=== PATIENT | female | born 1965 | race Hispanic/Latino ===

== ENCOUNTER 2016-11-29 18:28 | Inpatient (IN) | payer MEDICARE ==
[2016-11-29 19:16] LABS: Mean Corpuscular HGB Conc 29 % (30-34); Mean Corpuscular Volume 73 fl (79-97); Platelet Count 336 K/mm3 (140-440); Red Blood Count 2.74 M/mm3 (3.65-5.03); White Blood Count 11.8 K/mm3 (4.5-11.0)
[2016-11-29 19:23] LABS: Hematocrit 19.9 % (30.3-42.9); Hemoglobin 5.8 gm/dl (10.1-14.3); Mean Corpuscular Hemoglobin 21 pg (28-32); Red Cell Distribution Width 20.9 % (13.2-15.2)
[2016-11-29 19:26] LABS: INR 1.27 (0.87-1.13)
[2016-11-29 19:27] LABS: Partial Thromboplastin Time 26.4 Sec. (24.2-36.6)
[2016-11-29 19:37] LABS: BUN/Creatinine Ratio 17.69; Calcium 8.5 mg/dL (8.4-10.2); Potassium 4.1 mmol/L (3.6-5.0)
[2016-11-29] MEDS ORDERED: NACL 0.9% 500 ML 500 ML IV ONE (21:53)
--- NOTE | 2016-11-29 21:56 | Emergency Department Report ---
HPI - General Chief Complaint: Vaginal Bleeding Time Seen by Provider: 11/29/16 21:29 - HPI HPI: Patient is here with a history of anemia. Her anemia is due to cervical polyps. She was due to have surgery on Friday and went for a preop yesterday and was found either hemoglobin was 6. She was told to come to ED/hospital for possible transfusion. She complained of feeling tired and weak. ED Past Medical Hx - Past Medical History Hx Hypertension: Yes Hx Arthritis: Yes Additional medical history: Kidney Transplant 2005, Anemia, Right BKA, Blind in both eyes - Surgical History Additional Surgical History: BKA right leg, kidney transplant - Social History Smoking Status: Never Smoker Substance Use Type: None - Medications Home Medications: Home Medications Medication Instructions Recorded Confirmed Last Taken Type Antiox #11/Om3/Dha/Epa/Lut/Neelima 1 cap PO QDAY 11/12/16 11/29/16 11/29/16 History [50+ Adult Eye Health Softgel] Aspirin [Aspirin BABY CHEW TAB] 81 mg PO QDAY 11/12/16 11/29/16 11/29/16 History AtorvaSTATin [Lipitor] 10 mg PO QDAY 11/12/16 11/29/16 11/29/16 History Metoprolol Xl [Metoprolol 100 mg PO QDAY 11/12/16 11/29/16 11/29/16 History SUCCINATE ER TAB] Mycophenolate [Cellcept] 250 mg PO BID 11/12/16 11/29/16 11/29/16 History Pantoprazole [Protonix TAB] 40 mg PO QDAY 11/12/16 11/29/16 11/29/16 History Paroxetine HCl [PARoxetine] 40 mg PO QDAY 11/12/16 11/29/16 11/29/16 History Prednisone [predniSONE (Yamilex) ER 5 mg PO QDAY 11/12/16 11/29/16 11/29/16 History TAB] Tacrolimus [Prograf] 2 mg PO BID 11/12/16 11/29/16 11/29/16 History medroxyPROGESTERone ACETATE 1 vial IM Q90D 11/12/16 11/29/16 11/29/16 History [Depo-Provera (Contraception)] Oxycodone HCl/Acetaminophen 1 each PO Q6HR PRN #20 tablet 11/13/16 11/29/16/17 Rx [Percocet 7.5/325 mg] ED Review of Systems ROS: Stated complaint: DR OFFICE CALLED [facility] Other details as noted in HPI Comment: All other systems reviewed and negative Constitutional: no symptoms reported, weakness Respiratory: no symptoms reported Physical Exam - Physical Exam Vital Signs: Vital Signs 11/29/16 11/29/16 11/29/16 18:35 19:48 19:51 Temperature 98.4 F Pulse Rate 81 83 90 Respiratory 18 25 H 21 Rate Blood Pressure 163/62 191/72 O2 Sat by Pulse 100 100 100 Oximetry Physical Exam: Gen. alert and oriented 3 , appearing pale Head atraumatic normocephalic Eyes PERR LA EOMI Chest regular rate and rhythm normal S1-S2 lungs clear bilaterally Abdomen soft nondistended Back no point tenderness paravertebral tenderness Neuro no focal deficit. Psych normal mood. ED Course Vital Signs 11/29/16 11/29/16 11/29/16 18:35 19:48 19:51 Temperature 98.4 F Pulse Rate 81 83 90 Respiratory 18 25 H 21 Rate Blood Pressure 163/62 191/72 O2 Sat by Pulse 100 100 100 Oximetry ED Medical Decision Making - Lab Data Result diagrams: 11/29/16 18:55 11/29/16 18:55 Critical care attestation.: If time is entered above; I have spent that time in minutes in the direct care of this critically ill patient, excluding procedure time. ED Disposition Clinical Impression: Severe anemia Disposition: DC-09 OP ADMIT IP TO THIS HOSP Is pt being admited?: Yes Does the pt Need Aspirin: No Condition: Stable Referrals: PRIMARY CARE, [Primary Care Provider] - 3-5 Days
[2016-11-29] MEDS ORDERED: ZOFRAN IV PRN (22:20)
[2016-11-29] MEDS ORDERED: BENADRYL IV PRN (22:20)
[2016-11-29] MEDS ORDERED: MILK OF MAGNESIA PO PRN (22:20)
[2016-11-29] MEDS ORDERED: DULCOLAX PR PRN (22:20)
[2016-11-29] MEDS ORDERED: TYLENOL PO PRN (22:20)
--- NOTE | 2016-11-29 22:23 | History and Physical Report ---
History of Present Illness Date of examination: 11/29/16 History of present illness: 51-year-old woman with a history of hypertension, hyperlipidemia, transplanted kidney, legally blind comes to the emergency room because her doctor sent her to the emergency room for low hemoglobin. The patient is scheduled for surgery on Friday. She complaining of generalized weakness, decreased energy, shortness of breath with activity. Patient denies chest pain, palpitation, shortness of breath, cough, abdominal pain, hematochezia, dysuria, frequency, focal weakness, dysarthria, fever chills , polydipsia polyuria, hot or cold intolerance, easy bruisability, or rash or bleeding from mucosal membrane, rhinorrhea, epistaxis, earache, tinnitus, blurry vision, eye discharge, anxiety, depression. Other review of systems negative PAST SURGICAL HISTORY: Right BKA, pancreas and kidney transplant SOCIAL HISTORY: Denies alcohol, tobacco, drugs FAMILY HISTORY: Hypertension Medications and Allergies Allergies Allergy/AdvReac Type Severity Reaction Status Date / Time adhesive tape AdvReac Rash Verified 11/29/16 18:45 hydromorphone HCl AdvReac Anaphylaxis Verified 11/12/16 19:53 [From Dilaudid] piperacillin sodium AdvReac Diarrhea Verified 11/12/16 19:50 [From Zosyn] tazobactam sodium AdvReac Diarrhea Verified 11/12/16 19:50 [From Zosyn] Home Medications Medication Instructions Recorded Confirmed Last Taken Type Antiox #11/Om3/Dha/Epa/Lut/Neelima 1 cap PO QDAY 11/12/16 11/29/16 11/29/16 History [50+ Adult Eye Health Softgel] Aspirin [Aspirin BABY CHEW TAB] 81 mg PO QDAY 11/12/16 11/29/16 11/29/16 History AtorvaSTATin [Lipitor] 10 mg PO QDAY 11/12/16 11/29/16 11/29/16 History Metoprolol Xl [Metoprolol 100 mg PO QDAY 11/12/16 11/29/16 11/29/16 History SUCCINATE ER TAB] Mycophenolate [Cellcept] 250 mg PO BID 11/12/16 11/29/16 11/29/16 History Pantoprazole [Protonix TAB] 40 mg PO QDAY 11/12/16 11/29/16 11/29/16 History Paroxetine HCl [PARoxetine] 40 mg PO QDAY 11/12/16 11/29/16 11/29/16 History Prednisone [predniSONE (Yamilex) ER 5 mg PO QDAY 11/12/16 11/29/16 11/29/16 History TAB] Tacrolimus [Prograf] 2 mg PO BID 11/12/16 11/29/16 11/29/16 History medroxyPROGESTERone ACETATE 1 vial IM Q90D 11/12/16 11/29/16 11/29/16 History [Depo-Provera (Contraception)] Oxycodone HCl/Acetaminophen 1 each PO Q6HR PRN #20 tablet 11/13/16 11/29/16 Rx [Percocet 7.5/325 mg] Exam - Physical Exam Narrative exam: Gen. appearance: Patient lying in bed, no apparent distress HEENT: Normocephalic, atraumatic, pupils equally round and reactive to light, extraocular movement intact, and no sclericterus,. No JVD or thyromegaly or nodule,neck supple, no carotid bruit ,mucous membranes moist, no exudate or erythema Heart: S1, S2, regular rate and rhythm Lungs: Clear to auscultation bilaterally, breathing comfortable Abdomen: Positive bowel sounds, nontender, nondistended, no organomegaly Extremity: Right BKA, No edema, cyanosis, clubbing Skin: No rash, nodules, warm, dry Neuro: Oriented 3, cranial nerves II-12 intact, speech is fluent, motor and sensory intact - Constitutional Vitals: Temp Pulse Resp BP Pulse Ox 98.4 F 90 21 191/72 100 11/29/16 18:35 11/29/16 19:51 11/29/16 19:51 11/29/16 19:51 11/29/16 19:51 Results - Labs CBC & Chem 7: 11/29/16 18:55 11/29/16 18:55 Labs: Abnormal lab results 11/29/16 11/29/16 11/29/16 Range/Units 18:53 18:55 18:55 WBC 11.8 H (4.5-11.0) K/mm3 RBC 2.74 L (3.65-5.03) M/mm3 Hgb 5.8 L* (10.1-14.3) gm/dl Hct 19.9 L* (30.3-42.9) % MCV 73 L (79-97) fl MCH 21 L (28-32) pg MCHC 29 L (30-34) % RDW 20.9 H (13.2-15.2) % PT (12.2-14.9) Sec. INR (0.87-1.13) Chloride 111.0 H (98-107) mmol/L Carbon Dioxide 17 L (22-30) mmol/L BUN 23 H (7-17) mg/dL Creatinine 1.3 H (0.7-1.2) mg/dL Glucose 172 H (65-100) mg/dL Crossmatch See Detail 11/29/16 Range/Units 18:55 WBC (4.5-11.0) K/mm3 RBC (3.65-5.03) M/mm3 Hgb (10.1-14.3) gm/dl Hct (30.3-42.9) % MCV (79-97) fl MCH (28-32) pg MCHC (30-34) % RDW (13.2-15.2) % PT 15.8 H (12.2-14.9) Sec. INR 1.27 H (0.87-1.13) Chloride (98-107) mmol/L Carbon Dioxide (22-30) mmol/L BUN (7-17) mg/dL Creatinine (0.7-1.2) mg/dL Glucose (65-100) mg/dL Crossmatch Assessment and Plan Symptomatic anemia Hypertension Hyperlipidemia Status post kidney and pancreas transplant Admit to medicine Transfuse packed red blood cells, start DVT prophylaxis with SCD Continue outpatient medications
[2016-11-29] MEDS ORDERED: ROXICODONE PO PRN (23:11)
[2016-11-30] MEDS ORDERED: APRESOLINE PO PRN (00:09)
[2016-11-30] MEDS ORDERED: NACL 0.9% 500 ML 500 ML ONE (00:46)
[2016-11-30] MEDS: PERCOCET 5/325 PO PRN ×2 (01:00→07:37)
[2016-11-30] MEDS ORDERED: APRESOLINE IV ONE ×2 (01:24→06:45)
[2016-11-30] MEDS ORDERED: NITRO-BID 2% TP ONE (01:30)
[2016-11-30] MEDS ORDERED: PERCOCET 5/325 PO ONE (06:47)
[2016-11-30 08:35] LABS: Hematocrit 29.3 % (30.3-42.9); Hemoglobin 8.9 gm/dl (10.1-14.3); Mean Corpuscular HGB Conc 31 % (30-34); Mean Corpuscular Volume 80 fl (79-97); Platelet Count 316 K/mm3 (140-440); Red Blood Count 3.69 M/mm3 (3.65-5.03); White Blood Count 11.9 K/mm3 (4.5-11.0)
[2016-11-30 08:39] LABS: Mean Corpuscular Hemoglobin 24 pg (28-32); Red Cell Distribution Width 22.2 % (13.2-15.2)
[2016-11-30 08:56] LABS: BUN/Creatinine Ratio 19.16; Calcium 8.3 mg/dL (8.4-10.2); Chloride 111.9 mmol/L (98-107); Potassium 3.9 mmol/L (3.6-5.0)
[2016-11-30] MEDS ORDERED: DELTASONE PO SCH (10:00)
[2016-11-30] MEDS ORDERED: PROTONIX PO SCH (10:00)
[2016-11-30] MEDS ORDERED: PAXIL PO SCH (10:00)
[2016-11-30] MEDS ORDERED: TOPROL XL PO SCH (10:00)
[2016-11-30] MEDS ORDERED: CELLCEPT PO SCH (10:00)
[2016-11-30] MEDS ORDERED: PROGRAF PO SCH (10:00)
[2016-11-30 11:06] VITALS: BP 148/80
--- NOTE | 2016-11-30 11:15 | Discharge Summary ---
Providers - Providers Date of Admission: 11/29/16 22:20 Date of discharge: 11/30/16 Attending physician: BRAYDEN PEOPLES MD Primary care physician: FAISAL MORTON MD Hospitalization Reason for admission: symptomatic anemia Condition: Stable Hospital course: 51-year-old woman with a history of hypertension, hyperlipidemia, transplanted kidney, legally blind comes to the emergency room because her doctor sent her to the emergency room for low hemoglobin. The patient is scheduled for surgery on Friday. She complaining of generalized weakness, decreased energy, shortness of breath with activity. Patient was admitted for severe symptomatic anemia and she was transfused with 2 units of packed RBC and hemoglobin and hematocrit was stable after that. Patient has cervical polyps and scheduled for surgery by her DIETETIC AIDE. Patient was stable at the time of discharge. His medications were reviewed and updated on the time of discharge. Patient's questions and concerns were addressed at bedside. Disposition: TO HOME OR SELFCARE Time spent for discharge: 31 minutes - Discharge Diagnoses (1) Severe anemia Status: Acute (2) Right leg pain Status: Acute (3) HTN (hypertension) Status: Acute Qualifiers: Hypertension type: H Core Measure Documentation - Palliative Care Palliative Care/ Comfort Measures: Not Applicable - Core Measures Any of the following diagnoses?: none Exam - Physical Exam Narrative exam: Not in cardiopulmonary distress. The patient appeared well nourished and normally developed. Vital signs as documented. Head exam is unremarkable. No scleral icterus . Neck is without jugular venous distension, thyromegaly, or carotid bruits. Lungs are clear to auscultation. Cardiac exam reveals regular rate and Rhythm. Abdominal exam reveals normal bowel sounds, no masses. Extremities Rt BKA. STICKER ON: Alert and oriented 3. No focal weakness. - Constitutional Vitals: Temp Pulse Resp BP Pulse Ox 98.7 F 78 20 148/80 98 11/30/16 11:05 11/30/16 11:05 11/30/16 11:11/30/16 11:11/30/16 07:10 Plan Activity: no restrictions Weight Bearing Status: Full Weight Bearing Diet: low cholesterol, low salt Follow up with: PRIMARY CAREMD [Primary Care Provider] - 3-5 Days Prescriptions: oxyCODONE /ACETAMINOPHEN [Percocet 5/325 mg] 1 tab PO Q6H PRN #12 tablet PRN Reason: Pain Oxycodone HCl/Acetaminophen [Percocet 7.5/325 mg] 1 each PO Q6HR PRN #12 tablet PRN Reason: Pain
[2016-11-30 14:17] LABS: Anisocytosis 1+; Blastocytes % (Manual) 0 %; Hypochromasia 1+
[2016-11-30 14:18] LABS: Diff Status Complete; Microcytosis 1+; Platelet Estimate Consistent w Auto
== END 2016-11-30 13:15 | disposition home or self-care (01) | DRG 760 ==
LOC: ED 18:28 → 3A 22:20
PROVIDERS: ADMIT Internal Medicine; ATTEND Internal Medicine
PROC: 30233N1 Transfusion of Nonautologous Red Blood Cells into Peripheral Vein, Percutaneous Approach (ICD-10-PCS; principal; 2016-11-30)
DX: N84.1 Polyp of cervix uteri (principal); Z94.0 Kidney transplant status; Z94.83 Pancreas transplant status; D64.9 Anemia, unspecified; I10 Essential (primary) hypertension; E78.5 Hyperlipidemia, unspecified; H54.8 Legal blindness, as defined in USA; Z89.511 Acquired absence of right leg below knee; Z82.49 Family history of ischemic heart disease and other diseases of the circulatory system; Z88.8 Allergy status to other drugs, medicaments and biological substances; Z79.82 Long term (current) use of aspirin; M79.604 Pain in right leg
CPT/HCPCS: 36415; 80048; 85007; 85025; 85027; 85610; 85730; 86850; 86900; 86901; 86920; 99285; J0360; J7040; J7507; J7512; J7517; P9016

== ENCOUNTER 2017-04-29 11:48 | Inpatient (IN) | payer MEDICARE ==
--- NOTE | 2017-04-29 13:06 | Emergency Department Report ---
ED Shortness of Breath HPI - General Chief Complaint: Dyspnea/Respdistress Stated Complaint: SOB Time Seen by Provider: 04/29/17 12:49 Source: patient Mode of arrival: Ambulatory Limitations: No Limitations - History of Present Illness Initial Comments: 51-year-old female with a past medical history of hypertension, anemia, legal blindness, right BKA, and kidney and pancreas transplant at [place] presents to the hospital with complaints of volume overload shortness of breath. Patient complains of swelling to her left leg, orthopnea, PND, and dyspnea worse with movement. Patient complains of lower back pain because she has been sleeping in a hospital bed 1 week. She is unable to lay flat any needs to sit straight up. She reports that in March she received IV contrast then required IV fluids causing the symptoms of volume overload. 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 Patient states she had a history of diabetes prior to receiving transplant that has since improved. - Related Data Home Medications Medication Instructions Recorded Confirmed Last Taken AtorvaSTATin [Lipitor] 10 mg PO QDAY 11/12/16 11/29/16 11/29/16 C,E,Zinc,Copper 11/Qddpk2v/Lut 1 cap PO QDAY 11/12/16 11/29/16 11/29/16 [50+ Adult Eye Health Softgel] Metoprolol Xl [Metoprolol 100 mg PO QDAY 11/12/16 11/29/16 11/29/16 SUCCINATE ER TAB] Mycophenolate [Cellcept] 250 mg PO BID 11/12/16 11/29/16 11/29/16 Pantoprazole [Protonix TAB] 40 mg PO QDAY 11/12/16 11/29/16 11/29/16 Paroxetine HCl [PARoxetine] 40 mg PO QDAY 11/12/16 11/29/16 11/29/16 Prednisone [predniSONE (Yamilex) ER 5 mg PO QDAY 11/12/16 11/29/16 11/29/16 TAB] Tacrolimus [Prograf] 2 mg PO BID 11/12/16 11/29/16 11/29/16 medroxyPROGESTERone ACETATE 1 vial IM Q90D 11/12/16 11/29/16 11/29/16 [Depo-Provera (Contraception)] Previous Rx's Medication Instructions Recorded Last Taken Type Oxycodone HCl/Acetaminophen 1 each PO Q6HR PRN #12 tablet 11/30/16 Unknown Rx [Percocet 7.5/325 mg] oxyCODONE /ACETAMINOPHEN [Percocet 1 tab PO Q6H PRN #12 tablet 11/30/16 Unknown Rx 5/325 mg] Allergies Allergy/AdvReac Type Severity Reaction Status Date / Time adhesive tape AdvReac Rash Verified 04/29/17 12:05 hydromorphone HCl AdvReac Anaphylaxis Verified 04/29/17 12:05 [From Dilaudid] piperacillin sodium AdvReac Diarrhea Verified 04/29/17 12:05 [From Zosyn] tazobactam sodium AdvReac Diarrhea Verified 04/29/17 12:05 [From Zosyn] ED Review of Systems ROS: Stated complaint: SOB Other details as noted in HPI Comment: All other systems reviewed and negative Other: Constitutional: No fevers chills Eyes: legally blind ENT: No ear pain or throat pain Neck: Denies pain Respiratory: as per hpi Cardiovascular: Denies chest pain, palpitations, syncope GI: Denies abdominal pain, nausea, vomiting, diarrhea : Denies dysuria Musculoskeletal: as per hpi Skin: Denies rash, lesions, erythema Neurologic: Denies headache, numbness, weakness Psychiatric: Denies suicidal ideation, hallucinations ED Past Medical Hx - Past Medical History Hx Hypertension: Yes Hx Congestive Heart Failure: No Hx Diabetes: No Hx Arthritis: Yes Hx Asthma: No Hx COPD: No Additional medical history: Anemia, Blind in both eyes - Surgical History Additional Surgical History: BKA right leg, Kidney Transplant 2004, - Social History Smoking Status: Never Smoker - Medications Home Medications: Home Medications Medication Instructions Recorded Confirmed Last Taken Type AtorvaSTATin [Lipitor] 10 mg PO QDAY 11/12/16 11/29/16 11/29/16 History C,E,Zinc,Copper 11/Cxfsz9g/Lut 1 cap PO QDAY 11/12/16 11/29/16 11/29/16 History [50+ Adult Eye Health Softgel] Metoprolol Xl [Metoprolol 100 mg PO QDAY 11/12/16 11/29/16 11/29/16 History SUCCINATE ER TAB] Mycophenolate [Cellcept] 250 mg PO BID 11/12/16 11/29/16 11/29/16 History Pantoprazole [Protonix TAB] 40 mg PO QDAY 11/12/16 11/29/16 11/29/16 History Paroxetine HCl [PARoxetine] 40 mg PO QDAY 11/12/16 11/29/16 11/29/16 History Prednisone [predniSONE (Yamilex) ER 5 mg PO QDAY 11/12/16 11/29/16 11/29/16 History TAB] Tacrolimus [Prograf] 2 mg PO BID 11/12/16 11/29/16 11/29/16 History medroxyPROGESTERone ACETATE 1 vial IM Q90D 11/12/16 11/29/16 11/29/16 History [Depo-Provera (Contraception)] Oxycodone HCl/Acetaminophen 1 each PO Q6HR PRN #12 tablet 11/30/16 Unknown Rx [Percocet 7.5/325 mg] oxyCODONE /ACETAMINOPHEN [Percocet 1 tab PO Q6H PRN #12 tablet 11/30/16 Unknown Rx 5/325 mg] ED Physical Exam - General Limitations: No Limitations - Other Other exam information: General: No limitations, patient is alert in no acute distress Head exam: Atraumatic, normocephalic Eyes exam: Normal appearance ENT: Moist mucous membrane, normal oropharynx Neck exam: Normal inspection, full range of motion, no meningismus nontender Respiratory exam: Clear to auscultation bilateral, no wheezes, rales, or crackles Cardiovascular: Normal rate and rhythm, normal heart sounds Abdomen: Soft, nondistended, and nontender, with normal bowel sounds, no rebound, or guarding Extremity: Full range of motion normal inspection no deformity Back: Normal Inspection, full range of motion, right leg edema nontender Neurologic: Alert, oriented x3, cranial nerves intact, no motor or sensory deficit Psychiatric: normal affect, normal mood Skin: Warm, dry, intact ED Course Vital Signs 04/29/17 12:05 Temperature 98.1 F Pulse Rate 81 Respiratory 24 Rate Blood Pressure 97/58 O2 Sat by Pulse 94 Oximetry - Reevaluation(s) Reevaluation #1: 04/29/17 13:44 Lasix initiated and Percocet provided for pain ED Medical Decision Making - Lab Data Result diagrams: 04/29/17 12:56 04/29/17 13:02 Lab Results 04/29/17 04/29/1717 Range/Units 12:56 13:02 13:02 WBC 10.3 (4.5-11.0) K/mm3 RBC 3.30 L (3.65-5.03) M/mm3 Hgb 8.5 L (10.1-14.3) gm/dl Hct 28.1 L (30.3-42.9) % MCV 85 (79-97) fl MCH 26 L (28-32) pg MCHC 30 (30-34) % RDW 22.2 H (13.2-15.2) % Plt Count 279 (140-440) K/mm3 Lymph % (Auto) 4.2 L (13.4-35.0) % [place] % (Auto) 5.1 (0.0-7.3) % Eos % (Auto) 0.5 (0.0-4.3) % Baso % (Auto) 0.4 (0.0-1.8) % Lymph # 0.4 L (1.2-5.4) K/mm3 [place] # 0.5 (0.0-0.8) K/mm3 Eos # 0.1 (0.0-0.4) K/mm3 Baso # 0.0 (0.0-0.1) K/mm3 Seg Neutrophils % 89.8 H (40.0-70.0) % Seg Neutrophils # 9.2 H (1.8-7.7) K/mm3 PT 15.0 H (12.2-14.9) Sec. INR 1.12 (0.87-1.13) APTT 29.1 (24.2-36.6) Sec. Sodium 141 (137-145) mmol/L Potassium 3.5 L (3.6-5.0) mmol/L Chloride 99.2 (98-107) mmol/L Carbon Dioxide 23 (22-30) mmol/L Anion Gap 22 mmol/L BUN 12 (7-17) mg/dL Creatinine 1.3 H (0.7-1.2) mg/dL Estimated GFR 43 ml/min BUN/Creatinine Ratio 9 % Glucose 109 H (65-100) mg/dL Calcium 9.0 (8.4-10.2) mg/dL Total Bilirubin 0.70 (0.1-1.2) mg/dL AST 13 (5-40) units/L ALT 9 (7-56) units/L Alkaline Phosphatase 60 (35-129) units/L Troponin T 0.010 (0.00-0.029) ng/mL NT-Pro-B Natriuret Pep 3655 H (0-900) pg/mL Total Protein 6.3 (6.3-8.2) g/dL Albumin 4.1 (3.9-5) g/dL Albumin/Globulin Ratio 1.9 % Lipase 52 (13-60) units/L - EKG Data -: EKG Interpreted by Me (anteroseptal infarct, low voltage) EKG shows normal: sinus rhythm, axis (-24), QRS complexes, ST-T waves (no stemi) Rate: normal (75) - EKG Data When compared to previous EKG there are: previous EKG unavailable - Radiology Data Radiology results: report reviewed Chest x-ray: Mild pulmonary venous congestion in trace left pleural effusion - Medical Decision Making Patient related to the hospital for vital overload. Lasix initiated. Percocet for pain. Hospitalist informed - Differential Diagnosis CHF, PE, stable angina, OH, bronchitis, pneumonia Critical Care Time: No Critical care attestation.: If time is entered above; I have spent that time in minutes in the direct care of this critically ill patient, excluding procedure time. ED Disposition Clinical Impression: CHF exacerbation, Anemia, Hx of pancreas transplant, Hx of kidney transplant, Hx of right BKA Disposition: OP ADMIT IP TO THIS HOSP Is pt being admited?: Yes Condition: Stable Time of Disposition: 13:52 (Dr ann/hosp)
--- NOTE | 2017-04-29 13:19 | XRay Report ---
AP CHEST: HISTORY: Shortness of breath No comparison. Mild pulmonary venous congestion and trace left pleural effusion are suspected. The lungs are clear otherwise. Heart size is at the upper limits of normal. The bony structures are grossly intact. IMPRESSION: Mild pulmonary venous congestion and trace left pleural effusion.
[2017-04-29 13:31] LABS: Basophils % (Auto) 0.4 % (0.0-1.8); Eosinophils % (Auto) 0.5 % (0.0-4.3); Hematocrit 28.1 % (30.3-42.9); Hemoglobin 8.5 gm/dl (10.1-14.3); Mean Corpuscular HGB Conc 30 % (30-34); Mean Corpuscular Volume 85 fl (79-97); Platelet Count 279 K/mm3 (140-440); White Blood Count 10.3 K/mm3 (4.5-11.0)
[2017-04-29 13:33] LABS: Albumin 4.1 g/dL (3.9-5); Albumin/Globulin Ratio 1.9 %; Bilirubin,Total 0.7 mg/dL (0.1-1.2); Chloride 99.2 mmol/L (98-107); Potassium 3.5 mmol/L (3.6-5.0); Total Protein 6.3 g/dL (6.3-8.2)
[2017-04-29 13:33] LABS: Mean Corpuscular Hemoglobin 26 pg (28-32); Red Cell Distribution Width 22.2 % (13.2-15.2)
[2017-04-29] MEDS ORDERED: LASIX IV ONE (13:37)
[2017-04-29] MEDS ORDERED: PERCOCET 5/325 PO ONE (13:37)
[2017-04-29 13:41] LABS: INR 1.12 (0.87-1.13)
[2017-04-29 13:42] LABS: Partial Thromboplastin Time 29.1 Sec. (24.2-36.6)
--- NOTE | 2017-04-29 17:16 | History and Physical Report ---
History of Present Illness Date of examination: 04/29/17 Date of admission: 04/29/17 13:52 Chief complaint: CC Sob for 1 week History of present illness: - History of Present Illness Initial Comments: 51-year-old female with a past medical history of hypertension, anemia, legal blindness, right BKA, and kidney and pancreas transplant at [place] presents to the hospital with complaints of shortness of breath.She was recently admitted to [facility] for CHF exacerbation for one week and discharged about 2 days ago. Patient complains of swelling to her left leg, orthopnea, PND, and dyspnea worse with movement. Patient complains of lower back. She is unable to lay flat any needs to sit straight up. She reports that in March she received IV contrast then required IV fluids causing the symptoms of volume overload. 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 Love recommended that she come to the hospital for evaluation. Patient states she had a history of diabetes prior to receiving transplant that has since improved. Past Medical History Hx Hypertension: Yes Hx Congestive Heart Failure: No Hx Diabetes: No Hx Arthritis: Yes Hx Asthma: No Hx COPD: No Additional medical history: Anemia, Blind in both eyes Surgical History Additional Surgical History: BKA right leg, Kidney Transplant 2004, Social History Smoking Status: Never Smokera Fam Hx Htn - Medications Home Medications: Home Medications Medication Instructions Recorded Confirmed Last Taken Type AtorvaSTATin [Lipitor] 10 mg PO QDAY 11/12/16 11/29/16 11/29/16 History C,E,Zinc,Copper 11/Yeezb6r/Lut 1 cap PO QDAY 11/12/16 11/29/16 11/29/16 History [50+ Adult Eye Health Softgel] Metoprolol Xl [Metoprolol 100 mg PO QDAY 11/12/16 11/29/16 11/29/16 History SUCCINATE ER TAB] Mycophenolate [Cellcept] 250 mg PO BID 11/12/16 11/29/16 11/29/16 History Pantoprazole [Protonix TAB] 40 mg PO QDAY 11/12/16 11/29/16 11/29/16 History Paroxetine HCl [PARoxetine] 40 mg PO QDAY 11/12/16 11/29/16 11/29/16 History Prednisone [predniSONE (Yamilex) ER 5 mg PO QDAY 11/12/16 11/29/16 11/29/16 History TAB] Tacrolimus [Prograf] 2 mg PO BID 11/12/16 11/29/16 11/29/16 History medroxyPROGESTERone ACETATE 1 vial IM Q90D 11/12/16 11/29/16 11/29/16 History [Depo-Provera (Contraception)] Oxycodone HCl/Acetaminophen 1 each PO Q6HR PRN #12 tablet 11/30/16 Unknown Rx [Percocet 7.5/325 mg] oxyCODONE /ACETAMINOPHEN [Percocet 1 tab PO Q6H PRN #12 tablet 11/30/16 Unknown Rx 5/325 mg] Review of Systems Stated complaint: SOB Other details as noted in HPI Comment: All other systems reviewed and negative Other: Constitutional: No fevers chills Eyes: legally blind ENT: No ear pain or throat pain Neck: Denies pain Respiratory: as per hpi Cardiovascular: Denies chest pain, palpitations, syncope GI: Denies abdominal pain, nausea, vomiting, diarrhea : Denies dysuria Musculoskeletal: as per hpi Skin: Denies rash, lesions, erythema Neurologic: Denies headache, numbness, weakness Psychiatric: Denies suicidal ideation, hallucinations Medications and Allergies Allergies Allergy/AdvReac Type Severity Reaction Status Date / Time adhesive tape AdvReac Rash Verified 04/29/17 12:05 hydromorphone HCl AdvReac Anaphylaxis Verified 04/29/17 12:05 [From Dilaudid] piperacillin sodium AdvReac Diarrhea Verified 04/29/17 12:05 [From Zosyn] tazobactam sodium AdvReac Diarrhea Verified 04/29/17 12:05 [From Zosyn] Home Medications Medication Instructions Recorded Confirmed Last Taken Type AtorvaSTATin [Lipitor] 10 mg PO QDAY 11/12/16 04/29/17 11/29/16 History Metoprolol Xl [Metoprolol 100 mg PO QDAY 11/12/16 04/29/17 11/29/16 History SUCCINATE ER TAB] Prednisone [predniSONE (Yamilex) ER 5 mg PO QAM 11/12/16 04/29/17 11/29/16 History TAB] Tacrolimus [Prograf] 2 mg PO BID 11/12/16 11/29/16 11/29/16 History Furosemide [Lasix TAB] 40 mg PO QDAY 04/29/17 04/29/17 Unknown History Hydralazine HCl 50 mg PO TID 04/29/17 04/29/17 Unknown History NIFEdipine XL [Procardia Xl] 60 mg PO QDAY 04/29/17 04/29/17 Unknown History Sertraline [Zoloft] 25 mg PO QDAY 04/29/17 04/29/17 Unknown History Sodium Bicarbonate 1,300 mg PO BID 04/29/17 04/29/17 Unknown History Tacrolimus [Prograf] 1 mg PO BID 04/29/17 04/29/17 Unknown History Exam - Constitutional Vitals: Temp Pulse Resp BP Pulse Ox 97.7 F 76 12 137/87 95 04/29/17 16:06 04/29/17 16:06 04/29/17 16:06 04/29/17 16:06 04/29/17 16:06 General appearance: Present: mild distress, well-nourished - EENT Eyes: Present: PERRL ENT: hearing intact, clear oral mucosa - Neck Neck: Present: supple, normal ROM - Respiratory Respiratory effort: normal Respiratory: bilateral: rales - Cardiovascular Heart rate: 90 Rhythm: regular Heart Sounds: Present: S1 & S2. Absent: rub, click - Extremities Extremities: no ischemia, pulses symmetrical, No edema, abnormal (Rt BKA) Peripheral Pulses: within normal limits - Abdominal General gastrointestinal: Present: soft, non-tender, non-distended, normal bowel sounds Female genitourinary: Present: normal - Integumentary Integumentary: Present: clear, warm, dry - Musculoskeletal Musculoskeletal: gait normal, strength equal bilaterally - Psychiatric Psychiatric: appropriate mood/affect, intact judgment & insight - Neurologic Neurologic: CNII-XII intact, moves all extremities - Allied Health Allied health notes reviewed: nursing, case management Results - Labs CBC & Chem 7: 04/29/17 12:56 04/29/17 13:02 Labs: Laboratory Last Values WBC 10.3 K/mm3 (4.5-11.0) 04/29/17 12:56 RBC 3.30 M/mm3 (3.65-5.03) L 04/29/17 12:56 Hgb 8.5 gm/dl (10.1-14.3) L 04/29/17 12:56 Hct 28.1 % (30.3-42.9) L 04/29/17 12:56 MCV 85 fl (79-97) 04/29/17 12:56 MCH 26 pg (28-32) L 04/29/17 12:56 MCHC 30 % (30-34) 04/29/17 12:56 RDW 22.2 % (13.2-15.2) H 04/29/17 12:56 Plt Count 279 K/mm3 (140-440) 04/29/17 12:56 Lymph % (Auto) 4.2 % (13.4-35.0) L 04/29/17 12:56 Cataño % (Auto) 5.1 % (0.0-7.3) 04/29/17 12:56 Eos % (Auto) 0.5 % (0.0-4.3) 04/29/17 12:56 Baso % (Auto) 0.4 % (0.0-1.8) 04/29/17 12:56 Lymph # 0.4 K/mm3 (1.2-5.4) L 04/29/17 12:56 Cataño # 0.5 K/mm3 (0.0-0.8) 04/29/17 12:56 Eos # 0.1 K/mm3 (0.0-0.4) 04/29/17 12:56 Baso # 0.0 K/mm3 (0.0-0.1) 04/29/17 12:56 Seg Neutrophils % 89.8 % (40.0-70.0) H 04/29/17 12:56 Seg Neutrophils # 9.2 K/mm3 (1.8-7.7) H 04/29/17 12:56 PT 15.0 Sec. (12.2-14.9) H 04/29/17 13:02 INR 1.12 (0.87-1.13) 04/29/17 13:02 APTT 29.1 Sec. (24.2-36.6) 04/29/17 13:02 Sodium 141 mmol/L (137-145) 04/29/17 13:02 Potassium 3.5 mmol/L (3.6-5.0) L 04/29/17 13:02 Chloride 99.2 mmol/L (98-107) 04/29/17 13:02 Carbon Dioxide 23 mmol/L (22-30) 04/29/17 13:02 Anion Gap 22 mmol/L 04/29/17 13:02 BUN 12 mg/dL (7-17) 04/29/17 13:02 Creatinine 1.3 mg/dL (0.7-1.2) H 04/29/17 13:02 Estimated GFR 43 ml/min 04/29/17 13:02 BUN/Creatinine Ratio 9 % 04/29/17 13:02 Glucose 109 mg/dL (65-100) H 04/29/17 13:02 Calcium 9.0 mg/dL (8.4-10.2) 04/29/17 13:02 Total Bilirubin 0.70 mg/dL (0.1-1.2) 04/29/17 13:02 AST 13 units/L (5-40) 04/29/17 13:02 ALT 9 units/L (7-56) 04/29/17 13:02 Alkaline Phosphatase 60 units/L (35-129) 04/29/17 13:02 Troponin T 0.010 ng/mL (0.00-0.029) 04/29/17 13:02 NT-Pro-B Natriuret Pep 3655 pg/mL (0-900) H 04/29/17 13:02 Total Protein 6.3 g/dL (6.3-8.2) 04/29/17 13:02 Albumin 4.1 g/dL (3.9-5) 04/29/17 13:02 Albumin/Globulin Ratio 1.9 % 04/29/17 13:02 Lipase 52 units/L (13-60) 04/29/17 13:02 - Imaging and Cardiology EKG: report reviewed Chest x-ray: report reviewed (Pulmonary venous congestion) Assessment and Plan Advance Directives: Yes (ull code) VTE prophylaxis?: Chemical Plan of care discussed with patient/family: Yes - Patient Problems (1) CHF exacerbation Current Visit: Yes Status: Acute Qualifiers: Congestive heart failure type: combined Qualified Code(s): I50.43 - Acute on chronic combined systolic (congestive) and diastolic (congestive) heart failure Plan to address problem: Added Lasix IV 40mg po qam in addition to Po Lasix 20 mg Bid Echo for eval of EF and Valve function Requested law secretary to get [facility] records to avoid duplication. (2) MICKEY (acute kidney injury) Current Visit: Yes Status: Acute Plan to address problem: Cr 1.3 Gentle diuresis. Nephrology consulted for management of MICKEY (3) Hx of kidney transplant Current Visit: Yes Status: Acute Plan to address problem: Cont Tacrolimus (4) Hx of pancreas transplant Current Visit: Yes Status: Acute Plan to address problem: Cont Tacrolimus (5) HTN (hypertension) Current Visit: No Status: Chronic Qualifiers: Hypertension type: essential hypertension Qualified Code(s): I10 - Essential (primary) hypertension Plan to address problem: Cont Nifedipine Metoprolol and Hydralazine (6) Hx of right BKA Current Visit: Yes Status: Chronic Plan to address problem: Supportive care (7) Anemia Current Visit: Yes Status: Chronic Qualifiers: Anemia type: unspecified type Qualified Code(s): D64.9 - Anemia, unspecified Plan to address problem: Check Iron/B12/Folic acid levels (8) T2DM (type 2 diabetes mellitus) Current Visit: Yes Status: Chronic Qualifiers: Diabetes mellitus complication status: without complication Diabetes mellitus superintendent container terminal insulin use: without group home use Qualified Code(s): E11.9 - Type 2 diabetes mellitus without complications Plan to address problem: A1c well controlled. S/p Pancreas transplant. No coverage ordered b/c a1c is 5.1 (9) DVT prophylaxis Current Visit: Yes Status: Acute Plan to address problem: On Heparin
[2017-04-29] MEDS ORDERED: TYLENOL PO PRN (17:22)
[2017-04-29] MEDS ORDERED: REGLAN PO PRN (17:22)
[2017-04-29] MEDS ORDERED: AMBIEN PO PRN (17:22)
[2017-04-29] MEDS ORDERED: DULCOLAX PR PRN (17:22)
[2017-04-29] MEDS ORDERED: ZOFRAN IV PRN (17:22)
[2017-04-29] MEDS ORDERED: MILK OF MAGNESIA PO PRN (17:22)
[2017-04-29] MEDS: PROCARDIA XL PO SCH (18:18)
[2017-04-29] MEDS: MORPHINE IV PRN (18:19)
[2017-04-29] MEDS: ZOLOFT PO SCH (18:19)
[2017-04-29] MEDS: TOPROL XL PO SCH (18:19)
[2017-04-29] MEDS ORDERED: NON-FORMULARY (Hydralazine Hcl [Hydralazine Hcl] 50 MG) PO SCH (20:00)
[2017-04-29] MEDS: PEPCID PO SCH (21:20)
[2017-04-29] MEDS: PROGRAF PO SCH (21:20)
[2017-04-29] MEDS: APRESOLINE PO SCH (21:20)
[2017-04-29] MEDS: SODIUM BICARBONATE PO SCH (21:20)
[2017-04-29] MEDS ORDERED: PROGRAF PO SCH ×2 (22:00)
[2017-04-30] MEDS ORDERED: K-DUR PO ONE (06:41)
[2017-04-30] MEDS ORDERED: MILK OF MAGNESIA PO PRN (06:42)
[2017-04-30] MEDS ORDERED: DULCOLAX PR PRN (06:42)
[2017-04-30] MEDS ORDERED: TYLENOL PO PRN (06:42)
[2017-04-30] MEDS ORDERED: ZOFRAN IV PRN (06:42)
[2017-04-30 06:54] LABS: Basophils % (Auto) 0.6 % (0.0-1.8); Hematocrit 26.4 % (30.3-42.9); Hemoglobin 8.5 gm/dl (10.1-14.3); Mean Corpuscular HGB Conc 32 % (30-34); Mean Corpuscular Hemoglobin 27 pg (28-32); Mean Corpuscular Volume 85 fl (79-97); Platelet Count 246 K/mm3 (140-440); White Blood Count 7.1 K/mm3 (4.5-11.0)
[2017-04-30 06:55] LABS: Red Cell Distribution Width 22.5 % (13.2-15.2)
[2017-04-30 07:09] LABS: Albumin 3.8 g/dL (3.9-5); Bilirubin,Total 0.6 mg/dL (0.1-1.2); Calcium 8.6 mg/dL (8.4-10.2); Chloride 103.5 mmol/L (98-107); Potassium 3.3 mmol/L (3.6-5.0); Total Protein 5.7 g/dL (6.3-8.2)
[2017-04-30] MEDS: LASIX IV SCH (07:25)
[2017-04-30] MEDS: APRESOLINE PO SCH ×3 (08:00→20:28)
[2017-04-30 09:05] LABS: Iron 21 ug/dL (37-170); Total Iron Binding Capacity 193 mcg/dL (250-450)
--- NOTE | 2017-04-30 09:41 | Consultation ---
History of Present Illness - History of Present Illness Thank you for the consultation patient was evaluated today. Source of information; patient himself current records were also reviewed History of presenting illness; patient is a pleasant 51-year-old female who has known history of kidney pancreas transplant in her baseline creatinine is around 1-1.2 she presented to the hospital complaints of increasing shortness of breath and leg swelling hypertension. Patient was recently admitted at [facility] last month when she was having similar symptoms but had markedly worsened swelling and severely anemic. At that time she will also noted to have radiocontrast renal injury due to uterine embolization that was performed with radiocontrast. Patient was significantly edematous at that time but protein Ratio is essentially unremarkable. Patient was severely anemic in the past which was felt to be due to the fact bleeding and fibroid which has currently stopped She has been taking call Prograf 2 mg a morning 1 mg a evening and CellCept 500 mg twice a day which she's not getting of the current dose Overall her shortness of breath is much better today Past medical history is significant for kidney pancreas transplant Congestive heart failure Hypertension Below-knee amputation Severe anemia Uterine embolization Allergies: multiple including adhesive tape hydromorphone penicillin sodium etc. Social history: denies any history of alcohol or tobacco abuse Family history: noncontributory for renal lipid disorder Review of system is positive for worsening edema again with some shortness of breath were controlled blood pressure Complete review of systems obtained pertinent positive above other's review of systems negative Physical examination General: No acute distress HEENT: Oral mucosa moist no pharyngeal erythema no pallor or icterus no uremic order Neck: Supple no evidence of any thyromegaly trachea midline no JVD Chest: Clear to auscultation no crackles are also wheezes anteriorly Heart: Regular rate and rhythm S1-S2 heard no S3-S4 Abdomen: Soft nontender no renal bruit no CVA tenderness no suprapubic fullness no organomegaly Extremity: 1 plus edema one leg amputated no peripheral cyanosis pulses palpable Neurological: Alert awake follows command grossly nonfocal examination Back: Nontender thoracolumbar spine Musculoskeletal: No joint effusion noted Skin: No petechial rash/noted Assessment and plan Renal transplant recipient baseline creatinine has been between 1-1.3, renal function is currently at baseline Continue with her transplant medication at the same dose which she has been taking at home Shortness of breath in a patient who has history of diastolic heart failure uncontrolled hypertension No evidence of hydronephrosis was noted in her admission at [facility] History of radiocontrast nephropathy post uterine embolization at [place] Uncontrolled hypertension Severe anemia with history of uterine bleed fibroid postembolization Poor compliance with diet and lifestyle/ patient may benefit from psychiatric evaluation as well as social service agency director to see Continue to follow and make recommendation from renal standpoint Received adequate counseling and education regarding multiple renal related issues Nature and issue of renal-related issues were discussed with patient, all questions were answered and simple [place] Patient does have good understanding about renal-related issues. diuresis only as tolerated to keep creatinine 1.5 Counseled and educated to get further education from [employer] and related links, and if any further question to clarify with me We'll continue to follow and make recommendations from renal standpoint If you have any questions please feel free to contact me at [phone] Medications and Allergies Allergies Allergy/AdvReac Type Severity Reaction Status Date / Time adhesive tape AdvReac Rash Verified 04/29/17 12:05 hydromorphone HCl AdvReac Anaphylaxis Verified 04/29/17 12:05 [From Dilaudid] piperacillin sodium AdvReac Diarrhea Verified 04/29/17 12:05 [From Zosyn] tazobactam sodium AdvReac Diarrhea Verified 04/29/17 12:05 [From Zosyn] Home Medications Medication Instructions Recorded Confirmed Last Taken Type AtorvaSTATin [Lipitor] 10 mg PO QDAY 11/12/16 04/29/17 11/29/16 History Metoprolol Xl [Metoprolol 100 mg PO QDAY 11/12/16 04/29/17 11/29/16 History SUCCINATE ER TAB] Prednisone [predniSONE (Yamilex) ER 5 mg PO QAM 11/12/16 04/29/17 11/29/16 History TAB] Tacrolimus [Prograf] 2 mg PO BID 11/12/16 04/30/17 11/29/16 History Furosemide [Lasix TAB] 40 mg PO QDAY 04/29/17 04/29/17 Unknown History Hydralazine HCl 50 mg PO TID 04/29/17 04/29/17 Unknown History NIFEdipine XL [Procardia Xl] 60 mg PO QDAY 04/29/17 04/29/17 Unknown History Sertraline [Zoloft] 25 mg PO QDAY 04/29/17 04/29/17 Unknown History Sodium Bicarbonate 1,300 mg PO BID 04/29/17 04/29/17 Unknown History Tacrolimus [Prograf] 1 mg PO BID 04/29/17 04/29/17 Unknown History Mycophenolate [Cellcept] 500 mg PO BID tablet 05/02/17 Unknown Rx Spironolactone [Aldactone] 25 mg PO QDAY #30 tablet 05/02/17 Unknown Rx Active Meds: Active Medications Acetaminophen (Tylenol) 650 mg PO Q4H PRN PRN Reason: Pain MILD(1-3)/Fever >100.5/MIGUEL Atorvastatin Calcium (Lipitor) 10 mg PO QHS [facility] Last Admin: 04/29/17 21:20 Dose: 10 mg Bisacodyl (Dulcolax) 10 mg MT QDAY PRN PRN Reason: Constipation unrelieved by [facility] Famotidine (Pepcid) 20 mg PO BID [facility] Last Admin: 04/29/17 21:20 Dose: 20 mg Furosemide (Lasix) 40 mg IV QDAY [facility] Stop: 05/02/17 23:59 Last Admin: 04/30/17 07:25 Dose: 40 mg Heparin Sodium (Porcine) (Heparin) 5,000 unit SUB-Q Q12HR [facility] Hydralazine HCl (Apresoline) 50 mg PO TID [facility] Last Admin: 04/29/17 21:20 Dose: 50 mg Magnesium Hydroxide (Milk Of Magnesia) 30 ml PO Q4H PRN PRN Reason: Constipation Metoclopramide HCl (Reglan) 10 mg PO Q6H PRN PRN Reason: Nausea And Vomiting Metoprolol Succinate (Toprol Xl) 100 mg PO QDAY [facility] Last Admin: 04/29/17 18:19 Dose: 100 mg Morphine Sulfate (Morphine) 2 mg IV Q4H PRN PRN Reason: Pain, Moderate (4-6) Last Admin: 04/29/17 18:19 Dose: 2 mg Nifedipine (Procardia Xl) 60 mg PO QDAY [facility] Last Admin: 04/29/17 18:18 Dose: 60 mg Ondansetron HCl (Zofran) 4 mg IV Q8H PRN PRN Reason: N/V unrelieved by Reglan Prednisone (Deltasone) 5 mg PO QDAY [facility] Sertraline HCl (Zoloft) 25 mg PO QDAY [facility] Last Admin: 04/29/17 18:19 Dose: 25 mg Sodium Bicarbonate (Sodium Bicarbonate) 1,300 mg PO BID [facility] Last Admin: 04/29/17 21:20 Dose: 1,300 mg Tacrolimus (Prograf) 3 mg PO Q12HR [facility] Last Admin: 04/29/17 21:20 Dose: 3 mg Zolpidem Tartrate (Ambien) 5 mg PO QHS PRN PRN Reason: Insomnia Exam - Vital Signs Vital signs: Vital Signs Temp Pulse Resp BP Pulse Ox 98.1 F 81 24 97/58 94 04/29/17 12:05 04/29/17 12:05 04/29/17 12:05 04/29/17 12:05 04/29/17 12:05 Results - Lab Results 05/02/17 06:02 05/02/17 06:02 Most recent lab results Calcium 8.6 mg/dL (8.4-10.2) 04/30/17 06:41
[2017-04-30] MEDS ORDERED: NON-FORMULARY (Prednisone [Prednisone (Rayos) Er Tab] 5 MG) PO SCH (10:00)
[2017-04-30] MEDS: TOPROL XL PO SCH (11:34)
[2017-04-30] MEDS: SODIUM BICARBONATE PO SCH ×2 (11:34→21:55)
[2017-04-30] MEDS: DELTASONE PO SCH (11:35)
[2017-04-30] MEDS: PEPCID PO SCH ×2 (11:35→21:55)
[2017-04-30] MEDS: ZOLOFT PO SCH (11:35)
[2017-04-30] MEDS: PROCARDIA XL PO SCH (11:35)
[2017-04-30] MEDS: PROGRAF PO SCH ×2 (11:35→21:55)
[2017-04-30] MEDS: HEPARIN SUB-Q SCH ×2 (11:41→21:55)
--- NOTE | 2017-04-30 11:52 | Consultation ---
History of Present Illness Consult date: 04/30/17 Requesting physician: STEPHANIE BURGOS Consult reason: congestive heart failure History of present illness: The pt is a 51-year-old female with a past medical history significant for hypertension, HLP, anemia, legal blindness, right BKA due to osteomyelitis, renal failure, s/p kidney transplant at [place], DM (now resolved) s/p pancreas transplant at [place], embolization of the uterine artery due to excessive menstrual bleeding on 04/07/17. She is previously unknown to our practice. She presented with c/o progressively worsening SOB for the past 1-2 weeks. She also c/o orthopnea, which has been present for the past 4-5 months. She denies any chest pain, palpitations, n/v, diaphoresis, dizziness or syncope. LHC 04/2003 showed diffuse luminal irregularity in left system, angiographically normal right system, the anterobasal, anterior, inferior, inferobasal and posterolateral barnett are moderately hypokinetic, EF 35%. Echo 09/2007 showed normal LV-RV function, trivial MR. Past History Past Medical History: anemia, diabetes, hypertension, hyperlipidemia, renal failure Past Surgical History: Other (s/p kidney and pancreas transplant; right BKA) Social history: denies: smoking, alcohol abuse, prescription drug abuse Medications and Allergies Allergies Allergy/AdvReac Type Severity Reaction Status Date / Time adhesive tape AdvReac Rash Verified 04/29/17 12:05 hydromorphone HCl AdvReac Anaphylaxis Verified 04/29/17 12:05 [From Dilaudid] piperacillin sodium AdvReac Diarrhea Verified 04/29/17 12:05 [From Zosyn] tazobactam sodium AdvReac Diarrhea Verified 04/29/17 12:05 [From Zosyn] Home Medications Medication Instructions Recorded Confirmed Last Taken Type AtorvaSTATin [Lipitor] 10 mg PO QDAY 11/12/16 04/29/17 11/29/16 History Metoprolol Xl [Metoprolol 100 mg PO QDAY 11/12/16 04/29/17 11/29/16 History SUCCINATE ER TAB] Prednisone [predniSONE (Yamilex) ER 5 mg PO QAM 11/12/16 04/29/17 11/29/16 History TAB] Tacrolimus [Prograf] 2 mg PO BID 11/12/16 04/30/17 11/29/16 History Furosemide [Lasix TAB] 40 mg PO QDAY 04/29/17 04/29/17 Unknown History Hydralazine HCl 50 mg PO TID 04/29/17 04/29/17 Unknown History NIFEdipine XL [Procardia Xl] 60 mg PO QDAY 04/29/17 04/29/17 Unknown History Sertraline [Zoloft] 25 mg PO QDAY 04/29/17 04/29/17 Unknown History Sodium Bicarbonate 1,300 mg PO BID 04/29/17 04/29/17 Unknown History Tacrolimus [Prograf] 1 mg PO BID 04/29/17 04/29/17 Unknown History Active Meds: Active Medications Acetaminophen (Tylenol) 650 mg PO Q4H PRN PRN Reason: Pain MILD(1-3)/Fever >100.5/MIGUEL Atorvastatin Calcium (Lipitor) 10 mg PO QHS [facility] Last Admin: 04/29/17 21:20 Dose: 10 mg Bisacodyl (Dulcolax) 10 mg [place] QDAY PRN PRN Reason: Constipation unrelieved by MOM Famotidine (Pepcid) 20 mg PO BID [facility] Last Admin: 04/30/17 11:35 Dose: 20 mg Furosemide (Lasix) 40 mg IV QDAY [facility] Stop: 05/02/17 23:59 Last Admin: 04/30/17 07:25 Dose: 40 mg Heparin Sodium (Porcine) (Heparin) 5,000 unit SUB-Q Q12HR [facility] Last Admin: 04/30/17 11:41 Dose: 5,000 unit Hydralazine HCl (Apresoline) 50 mg PO TID [facility] Last Admin: 04/30/17 08:00 Dose: Not Given Magnesium Hydroxide (Milk Of Magnesia) 30 ml PO Q4H PRN PRN Reason: Constipation Metoclopramide HCl (Reglan) 10 mg PO Q6H PRN PRN Reason: Nausea And Vomiting Metoprolol Succinate (Toprol Xl) 100 mg PO QDAY [facility] Last Admin: 04/30/17 11:34 Dose: 100 mg Morphine Sulfate (Morphine) 2 mg IV Q4H PRN PRN Reason: Pain, Moderate (4-6) Last Admin: 04/29/17 18:19 Dose: 2 mg Nifedipine (Procardia Xl) 60 mg PO QDAY [facility] Last Admin: 04/30/17 11:35 Dose: 60 mg Ondansetron HCl (Zofran) 4 mg IV Q8H PRN PRN Reason: N/V unrelieved by Reglan Prednisone (Deltasone) 5 mg PO QDAY [facility] Last Admin: 04/30/17 11:35 Dose: 5 mg Sertraline HCl (Zoloft) 25 mg PO QDAY [facility] Last Admin: 04/30/17 11:35 Dose: 25 mg Sodium Bicarbonate (Sodium Bicarbonate) 1,300 mg PO BID [facility] Last Admin: 04/30/17 11:34 Dose: 1,300 mg Tacrolimus (Prograf) 3 mg PO Q12HR [facility] Last Admin: 04/30/17 11:35 Dose: 3 mg Zolpidem Tartrate (Ambien) 5 mg PO QHS PRN PRN Reason: Insomnia Review of Systems Constitutional: no weight loss, no weight gain, no fever, no chills, no sweats Ears, nose, mouth and throat: no ear pain, no nose pain, no sinus pressure, no sinus pain Cardiovascular: orthopnea, shortness of breath, dyspnea on exertion, no chest pain, no palpitations, no rapid/irregular heart beat, no edema, no syncope, no lightheadedness Respiratory: shortness of breath, dyspnea on exertion, no cough, no congestion, no wheezing, no pain on inspiration Gastrointestinal: no abdominal pain, no nausea, no vomiting, no diarrhea, no constipation, no change in bowel habits Genitourinary Female: no dyspareunia, no pelvic pain, no flank pain, no dysuria , no urinary frequency Musculoskeletal: low back pain (chronic), no neck stiffness, no neck pain, no shooting arm pain, no arm numbness/tingling, no shooting leg pain, no leg numbness/tingling Integumentary: no rash, no pruritis, no redness, no sores, no wounds Neurological: no head injury, no paralysis, no weakness, no parathesias, no numbness, no tingling, no seizures, no syncope Psychiatric: no anxiety Endocrine: no cold intolerance, no heat intolerance Hematologic/Lymphatic: no easy bruising, no easy bleeding Allergic/Immunologic: no urticaria, no wheezing Physical Examination Vital Signs Temp Pulse Resp BP Pulse Ox 98.1 F 81 24 97/58 94 04/29/17 12:05 04/29/17 12:05 04/29/17 12:05 04/29/17 12:05 04/29/17 12:05 General appearance: no acute distress HEENT: Positive: PERRL, Normocephaly, Mucus Membranes Moist Neck: Positive: neck supple, trachea midline Cardiac: Positive: Reg Rate and Rhythm, S1/S2 Lungs: Positive: Decreased Breath Sounds Neuro: Positive: Grossly Intact Abdomen: Positive: Soft. Negative: Tender Skin: Positive: Clear. Negative: Rash, Wound Musculoskeletal: No Pain, other (right BKA) Extremities: Absent: edema Results 04/30/17 06:41 04/30/17 06:41 Cardiac Enzymes 04/29/17 04/30/17 Range/Units 13:02 06:41 AST 13 12 (5-40) units/L Coagulation 04/29/17 Range/Units 13:02 PT 15.0 H (12.2-14.9) Sec. INR 1.12 (0.87-1.13) APTT 29.1 (24.2-36.6) Sec. CBC 04/29/17 04/30/17 Range/Units 12:56 06:41 WBC 10.3 7.1 (4.5-11.0) K/mm3 RBC 3.30 L 3.10 L (3.65-5.03) M/mm3 Hgb 8.5 L 8.5 L (10.1-14.3) gm/dl Hct 28.1 L 26.4 L (30.3-42.9) % Plt Count 279 246 (140-440) K/mm3 Lymph # 0.4 L 0.9 L (1.2-5.4) K/mm3 Cassia # 0.5 0.6 (0.0-0.8) K/mm3 Eos # 0.1 0.1 (0.0-0.4) K/mm3 Baso # 0.0 0.0 (0.0-0.1) K/mm3 Comprehensive Metabolic Panel 04/29/17 04/30/17 Range/Units 13:02 06:41 Sodium 141 146 H (137-145) mmol/L Potassium 3.5 L 3.3 L (3.6-5.0) mmol/L Chloride 99.2 103.5 (98-107) mmol/L Carbon Dioxide 23 28 (22-30) mmol/L BUN 12 11 (7-17) mg/dL Creatinine 1.3 H 1.2 (0.7-1.2) mg/dL Glucose 109 H 86 (65-100) mg/dL Calcium 9.0 8.6 (8.4-10.2) mg/dL AST 13 12 (5-40) units/L ALT 9 8 (7-56) units/L Alkaline Phosphatase 60 55 (35-129) units/L Total Protein 6.3 5.7 L (6.3-8.2) g/dL Albumin 4.1 3.8 L (3.9-5) g/dL - Imaging and Cardiology Echo: pending, report reviewed (09/2007 showed normal LV-RV function, trivial MR) Cardiac cath: report reviewed (04/2003 showed diffuse luminal irregularity in left system, angiographically normal right system, the anterobasal, anterior, inferior, inferobasal and posterolateral barnett are moderately hypokinetic, EF 35 %) EKG: report reviewed, image reviewed EKG interpretations - Telemetry EKG Rhythm: Sinus Rhythm - EKG Sinus rhythms and dysrhythmias: sinus rhythm Myocardial infarction: septal [place] (old age or ind, anterior [place] (old age or i Assessment and Plan Assessment: Acute heart failure HTN HLP Anemia Hypokalemia Legal blindness H/o kidney and pancreas transplant H/o right BKA secondary to osteomyelitis S/p embolization of the uterine artery due to excessive menstrual bleeding on Plan: Obtain echo. Cont current medical management. Assessment and plan reviewed with pt at bedside. The patient has been seen in conjunction with Dr. Macias who agrees with the assessment and plan of care.
--- NOTE | 2017-04-30 11:55 | Progress Note ---
Assessment and Plan Assessment and plan: 51-year-old female with a past medical history of hypertension, anemia, legal blindness, right BKA, and kidney and pancreas transplant at [place] presents to the hospital with complaints of shortness of breath.She was recently admitted to [facility] for CHF exacerbation for one week and discharged about 2 days ago. Patient complains of swelling to her left leg, orthopnea, PND, and dyspnea worse with movement. Patient complains of lower back. She is unable to lay flat any needs to sit straight up. She reports that in March she received IV contrast then required IV fluids causing the symptoms of volume overload. Instructor Extension Work: Dr. Love recommended that she come to the hospital for evaluation. Patient states she had a history of diabetes prior to receiving transplant that has since improved. Acute on chronic congestive heart failure possible systolic * Workup ongoing, cardiology consult, strict I's and O's, continue Lasix, Toprol. We'll await cardiology nephrology on if patient will benefit from ACEI/ ARB Acute kidney injury on chronic kidney disease secondary to vasomotor nephropathy * Nephrology following, Now at baseline Kidney Transplant * Continue transplant medications Hypokalemia * Replace and monitor Hx OF Radiocontrast nephropathy post uterine embolization AT [place] * stable at this time Severe anemia multifactorial in etiology now stable history of uterine bleed from fibroid postembolization also CKD. 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 Continue current medications Noncompliance with diet and lifestyle * Extensive counselling Right BKA * Fall precautions Diabetes mellitus * Insulin sliding scale ?S/P Pancrease Transplant, AIC DVT/GI prophy History Interval history: Patient seen and examined, still with some shortenss of breath. Denies chest pain, nausea. Hospitalist Physical - Physical exam Narrative exam: HEENT: Positive: PERRL, Normocephaly, Mucus Membranes Moist Neck: Positive: neck supple, trachea midline Cardiac: Positive: Reg Rate and Rhythm, S1/S2 Lungs: Positive: Decreased Breath Sounds Neuro: Positive: Grossly Intact Abdomen: Positive: Soft. Negative: Tender Skin: Positive: Clear. Negative: Rash, Wound Musculoskeletal: No Pain, other (right BKA) Extremities: Trace edema - Constitutional Vitals: Temp Pulse Resp BP Pulse Ox 98.3 F 74 18 146/62 95 04/30/17 04:42 04/30/17 04:42 04/30/17 04:42 04/30/17 04:42 04/30/17 04:42 General appearance: Present: mild distress, well-nourished Results - Labs CBC & Chem 7: 04/30/17 06:41 05/01/17 03:42 Labs: Laboratory Last Values WBC 7.1 K/mm3 (4.5-11.0) 04/30/17 06:41 RBC 3.10 M/mm3 (3.65-5.03) L 04/30/17 06:41 Hgb 8.5 gm/dl (10.1-14.3) L 04/30/17 06:41 Hct 26.4 % (30.3-42.9) L 04/30/17 06:41 MCV 85 fl (79-97) 04/30/17 06:41 MCH 27 pg (28-32) L 04/30/17 06:41 MCHC 32 % (30-34) 04/30/17 06:41 RDW 22.5 % (13.2-15.2) H 04/30/17 06:41 Plt Count 246 K/mm3 (140-440) 04/30/17 06:41 Lymph % (Auto) 13.0 % (13.4-35.0) L 04/30/17 06:41 Morton % (Auto) 8.6 % (0.0-7.3) H 04/30/17 06:41 Eos % (Auto) 2.0 % (0.0-4.3) 04/30/17 06:41 Baso % (Auto) 0.6 % (0.0-1.8) 04/30/17 06:41 Lymph # 0.9 K/mm3 (1.2-5.4) L 04/30/17 06:41 Morton # 0.6 K/mm3 (0.0-0.8) 04/30/17 06:41 Eos # 0.1 K/mm3 (0.0-0.4) 04/30/17 06:41 Baso # 0.0 K/mm3 (0.0-0.1) 04/30/17 06:41 Seg Neutrophils % 75.8 % (40.0-70.0) H 04/30/17 06:41 Seg Neutrophils # 5.4 K/mm3 (1.8-7.7) 04/30/17 06:41 PT 15.0 Sec. (12.2-14.9) H 04/29/17 13:02 INR 1.12 (0.87-1.13) 04/29/17 13:02 APTT 29.1 Sec. (24.2-36.6) 04/29/17 13:02 Sodium 146 mmol/L (137-145) H 04/30/17 06:41 Potassium 3.3 mmol/L (3.6-5.0) L 04/30/17 06:41 Chloride 103.5 mmol/L (98-107) 04/30/17 06:41 Carbon Dioxide 28 mmol/L (22-30) 04/30/17 06:41 Anion Gap 18 mmol/L 04/30/17 06:41 BUN 11 mg/dL (7-17) 04/30/17 06:41 Creatinine 1.2 mg/dL (0.7-1.2) 04/30/17 06:41 Estimated GFR 48 ml/min 04/30/17 06:41 BUN/Creatinine Ratio 9 % 04/30/17 06:41 Glucose 86 mg/dL (65-100) 04/30/17 06:41 Hemoglobin A1c 5.1 % (4-6) 04/29/17 18:33 Calcium 8.6 mg/dL (8.4-10.2) 04/30/17 06:41 Iron 21 ug/dL (37-170) L 04/30/17 08:25 TIBC 193 mcg/dL (250-450) L 04/30/17 08:25 % Saturation 11.86 % 04/30/17 08:17 Transferrin 192 mg/dl (192-382) 04/30/17 08:17 Total Bilirubin 0.60 mg/dL (0.1-1.2) 04/30/17 06:41 AST 12 units/L (5-40) 04/30/17 06:41 ALT 8 units/L (7-56) 04/30/17 06:41 Alkaline Phosphatase 55 units/L (35-129) 04/30/17 06:41 Troponin T 0.010 ng/mL (0.00-0.029) 04/29/17 13:02 NT-Pro-B Natriuret Pep 3655 pg/mL (0-900) H 04/29/17 13:02 Total Protein 5.7 g/dL (6.3-8.2) L 04/30/17 06:41 Albumin 3.8 g/dL (3.9-5) L 04/30/17 06:41 Albumin/Globulin Ratio 2.0 % 04/30/17 06:41 Lipase 52 units/L (13-60) 04/29/17 13:02 Vitamin B12 1192 pg/mL (211-911) H 04/30/17 08:17 - Imaging and Cardiology Chest x-ray: image reviewed (mild pulmonary congestion)
[2017-04-30] MEDS: MORPHINE IV PRN (14:11)
[2017-05-01 04:37] LABS: Calcium 8.7 mg/dL (8.4-10.2); Chloride 104.8 mmol/L (98-107); Magnesium 1.8 mg/dL (1.7-2.3); Potassium 3.5 mmol/L (3.6-5.0)
--- NOTE | 2017-05-01 09:32 | Progress Note ---
Subjective Interval history: Patient was seen today for follow-up on multiple renal related issues Events of 24 hours vitals labs intake output medications were reviewed Interdisciplinary Notes were also reviewed Past medical history: Reviewed Social history: Reviewed Allergies: Reviewed Medication: Reviewed Labs: Reviewed Physical examination Gen.: No acute distress HEENT: Oral mucosa moist, mild pallor no icterus Neck: Supple no thyromegaly nodular mass or JVD Chest: Clear to auscultation anteriorly Heart: Regular rate and rhythm S1 and S2 heard Abdomen: Soft nontender no renal bruit no CVA tenderness no suprapubic fullness Extremity: Edema approximately 1+ dry skin no purpuric rash Dermatology: Dry skin no rash Neurological: Alert awake oriented Assessment and plan Renal transplant recipient patient's renal function has been stable continue with the immunosuppression as she has been taking at home Patient was taking CellCept at home and this will be restarted without any delay History of uncontrolled hypertension chronic long-standing? Compliance needs follow-up goal blood pressure under 130 systolic Congestive heart failure counseled and educated patient does have hypertension that has been uncontrolled for quite some time she is also been very poorly compliant with her diet and lifestyle partly also complicated by severe anemia that she had recently Status post radiocontrast exposure resulting in radiocontrast nephropathy currently improved this was done for uterine embolization at [place] Monitor renal related labs, diuresis as tolerated to keep creatinine under 1.4- 1.5 Hypokalemia congestive heart failure hypertension would consider adding Aldactone and monitor blood pressure follow-up Follow cardiology recommendations Had a detailed discussion with patient about multiple renal related issues, explained and simple Setswana. Patient does exhibit good understanding off multiple renal related issues We'll continue to follow and make recommendation from renal standpoint Objective - Vital Signs Vital signs: Vital Signs - 12hr 04/30/17 04/30/17 21:59 23:43 Temperature 98.8 F Pulse Rate 77 Respiratory 20 Rate Respiratory 20 Rate [Thoracic back] Blood Pressure 159/65 O2 Sat by Pulse 96 Oximetry - Lab 05/02/17 06:02 05/02/17 06:02 Most recent lab results Calcium 8.7 mg/dL (8.4-10.2) 05/01/17 03:42 Magnesium 1.80 mg/dL (1.7-2.3) 05/01/17 03:42
[2017-05-01] MEDS ORDERED: ALDACTONE PO SCH (10:00)
[2017-05-01] MEDS: ZOLOFT PO SCH (10:31)
[2017-05-01] MEDS: TOPROL XL PO SCH (10:34)
[2017-05-01] MEDS: PEPCID PO SCH ×2 (10:35→22:25)
[2017-05-01] MEDS: DELTASONE PO SCH (10:35)
[2017-05-01] MEDS: PROCARDIA XL PO SCH (10:36)
[2017-05-01] MEDS: LASIX IV SCH (10:39)
[2017-05-01] MEDS: HEPARIN SUB-Q SCH ×2 (10:45→22:25)
[2017-05-01] MEDS: PROGRAF PO SCH (10:55)
[2017-05-01] MEDS: SODIUM BICARBONATE PO SCH ×2 (11:04→22:25)
[2017-05-01] MEDS: CELLCEPT PO SCH ×2 (11:50→22:25)
[2017-05-01] MEDS: APRESOLINE PO SCH ×3 (11:56→20:34)
--- NOTE | 2017-05-01 12:12 | Query- Renal Failure ---
Dear ____Kary Date:___05/01/17 [employer]er D[employer] Feeder/CDS:___[place] Phone#:___[phone] Exercise your independent professional judgment when responding to query. Questions asked do not imply a particular answer is desired or expected. We greatly appreciate your clarification on this issue. Clinical Documentation States: 51 year old female was admitted on 04/29/17 The progress note (Dr. billy 04/30/17) states " 51-year-old female with a past medical history of hypertension, anemia, legal blindness, right BKA, and kidney and pancreas transplant at [place] presents to the hospital with complaints of shortness of breath. Acute kidney injury on chronic kidney disease Nephrology following, Now at baseline " Clinical Findings Show: 04/29/17 04/30/17 05/01/17 Creatinine: 1.3 1.2 1.3 BUN/Creatinine Ratio: 9 9 8 Please clarify if you mean: Acute Renal Failure with or due to: [ ] Tubular Necrosis [ ] Medullary Necrosis [ x] Vasomotor Nephropathy [ ] Shock Kidney [ ] Tubular Nephrosis [ ] Renal Tubular Stasis [ ] Cortical Necrosis [ ] Acute Renal Failure (unspecified) [ ] Lower Tubular Nephrosis [ ] Other: [ ] Not Applicable Present on Admission: [x ] Yes (Y) [ ] Clinically undeterminable (W) [ ] No (N) Please also document response in your Progress Notes and/or Discharge Summary and indicate if the condition was present on admission. MELVINAD
--- NOTE | 2017-05-01 14:10 | Progress Note ---
Assessment and Plan Assessment: Acute diastolic heart failure HTN HLP Anemia Hypokalemia Legal blindness H/o kidney and pancreas transplant H/o right BKA secondary to osteomyelitis S/p embolization of the uterine artery due to excessive menstrual bleeding on Plan: Echo reviewed - EF 55-60%, pseudonormalization, LA mildly dilated, RV hyperdynamic. Cont current medical management. Assessment and plan reviewed with pt at bedside. The patient has been seen in conjunction with Dr. Macias who agrees with the assessment and plan of care. Subjective Date of service: 05/01/17 Principal diagnosis: DHF Interval history: Pt resting comfortably, SOB slightly improved. Objective Last Vital Signs Temp 98.8 F 04/30/17 23:43 Pulse 73 05/01/17 10:35 Resp 20 04/30/17 23:43 BP 159/67 05/01/17 11:56 Pulse Ox 96 04/30/17 23:43 - Physical Examination HEENT: Positive: PERRL, Normocephaly, Mucus Membranes Moist Neck: Positive: neck supple, trachea midline Cardiac: Positive: Reg Rate and Rhythm, S1/S2 Lungs: Positive: Decreased Breath Sounds Neuro: Positive: Grossly Intact Abdomen: Positive: Soft. Negative: Tender Skin: Positive: Clear. Negative: Rash, Wound Musculoskeletal: No Pain, other (right BKA) Extremities: Absent: edema - Labs and Meds Comprehensive Metabolic Panel 05/01/17 Range/Units 03:42 Sodium 144 (137-145) mmol/L Potassium 3.5 L (3.6-5.0) mmol/L Chloride 104.8 (98-107) mmol/L Carbon Dioxide 25 (22-30) mmol/L BUN 11 (7-17) mg/dL Creatinine 1.3 H (0.7-1.2) mg/dL Glucose 93 (65-100) mg/dL Calcium 8.7 (8.4-10.2) mg/dL - Imaging and Cardiology EKG: report reviewed, image reviewed Echo: pending, report reviewed (09/2007 showed normal LV-RV function, trivial MR) Cardiac cath: report reviewed (04/2003 showed diffuse luminal irregularity in left system, angiographically normal right system, the anterobasal, anterior, inferior, inferobasal and posterolateral barnett are moderately hypokinetic, EF 35 %) - EKG Sinus rhythms and dysrhythmias: sinus rhythm Myocardial infarction: septal PA (old age or ind, anterior PA (old age or i
[2017-05-01] MEDS ORDERED: PROGRAF PO SCH (18:00)
--- NOTE | 2017-05-01 18:05 | Progress Note ---
Assessment and Plan Assessment and plan: 51-year-old female with a past medical history of hypertension, anemia, legal blindness, right BKA, and kidney and pancreas transplant at [place] presents to the hospital with complaints of shortness of breath.She was recently admitted to [facility] for CHF exacerbation for one week and discharged about 2 days ago. Patient complains of swelling to her left leg, orthopnea, PND, and dyspnea worse with movement. Patient complains of lower back. She is unable to lay flat any needs to sit straight up. She reports that in March she received IV contrast then required IV fluids causing the symptoms of volume overload. 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 Love recommended that she come to the hospital for evaluation. Patient states she had a history of diabetes prior to receiving transplant that has since improved. Acute on chronic congestive heart failure possible systolic * Workup ongoing, cardiology consult, strict I's and O's, continue Lasix, Toprol. We'll await cardiology nephrology on if patient will benefit from ACEI/ ARB Acute kidney injury on chronic kidney disease secondary to vasomotor nephropathy * Nephrology following, Now at baseline Pancrease/Kidney Transplant * Continue transplant medications Legal Blindness * Continue to monitor. Hypokalemia * Replace and monitor Hx OF Radiocontrast nephropathy post uterine embolization AT [place] * stable at this time Severe anemia multifactorial in etiology now stable history of uterine bleed from fibroid postembolization also CKD. * Stable, ANEMIA WORK UP for Iron Indices Uncontrolled hypertension * Low salt diet, med compliance counselling provided. 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 History Interval history: Patient seen and examined, still with some shortenss of breath. Denies chest pain, nausea. Sitting up at bedside Hospitalist Physical - Physical exam Narrative exam: HEENT: Positive: PERRL, Normocephaly, Mucus Membranes Moist Neck: Positive: neck supple, trachea midline Cardiac: Positive: Reg Rate and Rhythm, S1/S2 Lungs: Positive: Decreased Breath Sounds Neuro: Positive: Grossly Intact Abdomen: Positive: Soft. Negative: Tender Skin: Positive: Clear. Negative: Rash, Wound Musculoskeletal: No Pain, other (right BKA PROSTHESIS) Extremities: Trace edema - Constitutional Vitals: Temp Pulse Resp BP Pulse Ox 98.8 F 73 20 159/67 96 04/30/17 23:43 05/01/17 10:35 05/01/17 10:00 05/01/17 11:56 04/30/17 23:43 General appearance: Present: mild distress, well-nourished Results - Labs CBC & Chem 7: 04/30/17 06:41 05/01/17 03:42 Labs: Laboratory Last Values WBC 7.1 K/mm3 (4.5-11.0) 04/30/17 06:41 RBC 3.10 M/mm3 (3.65-5.03) L 04/30/17 06:41 Hgb 8.5 gm/dl (10.1-14.3) L 04/30/17 06:41 Hct 26.4 % (30.3-42.9) L 04/30/17 06:41 MCV 85 fl (79-97) 04/30/17 06:41 MCH 27 pg (28-32) L 04/30/17 06:41 MCHC 32 % (30-34) 04/30/17 06:41 RDW 22.5 % (13.2-15.2) H 04/30/17 06:41 Plt Count 246 K/mm3 (140-440) 04/30/17 06:41 Lymph % (Auto) 13.0 % (13.4-35.0) L 04/30/17 06:41 Ashley % (Auto) 8.6 % (0.0-7.3) H 04/30/17 06:41 Eos % (Auto) 2.0 % (0.0-4.3) 04/30/17 06:41 Baso % (Auto) 0.6 % (0.0-1.8) 04/30/17 06:41 Lymph # 0.9 K/mm3 (1.2-5.4) L 04/30/17 06:41 Ashley # 0.6 K/mm3 (0.0-0.8) 04/30/17 06:41 Eos # 0.1 K/mm3 (0.0-0.4) 04/30/17 06:41 Baso # 0.0 K/mm3 (0.0-0.1) 04/30/17 06:41 Seg Neutrophils % 75.8 % (40.0-70.0) H 04/30/17 06:41 Seg Neutrophils # 5.4 K/mm3 (1.8-7.7) 04/30/17 06:41 PT 15.0 Sec. (12.2-14.9) H 04/29/17 13:02 INR 1.12 (0.87-1.13) 04/29/17 13:02 APTT 29.1 Sec. (24.2-36.6) 04/29/17 13:02 Sodium 144 mmol/L (137-145) 05/01/17 03:42 Potassium 3.5 mmol/L (3.6-5.0) L 05/01/17 03:42 Chloride 104.8 mmol/L (98-107) 05/01/17 03:42 Carbon Dioxide 25 mmol/L (22-30) 05/01/17 03:42 Anion Gap 18 mmol/L 05/01/17 03:42 BUN 11 mg/dL (7-17) 05/01/17 03:42 Creatinine 1.3 mg/dL (0.7-1.2) H 05/01/17 03:42 Estimated GFR 43 ml/min 05/01/17 03:42 BUN/Creatinine Ratio 8 % 05/01/17 03:42 Glucose 93 mg/dL (65-100) 05/01/17 03:42 POC Glucose 104 (70-105) 05/01/17 11:47 Hemoglobin A1c 5.1 % (4-6) 04/29/17 18:33 Calcium 8.7 mg/dL (8.4-10.2) 05/01/17 03:42 Magnesium 1.80 mg/dL (1.7-2.3) 05/01/17 03:42 Iron 21 ug/dL (37-170) L 04/30/17 08:25 TIBC 193 mcg/dL (250-450) L 04/30/17 08:25 % Saturation 11.86 % 04/30/17 08:17 Transferrin 192 mg/dl (192-382) 04/30/17 08:17 Total Bilirubin 0.60 mg/dL (0.1-1.2) 04/30/17 06:41 AST 12 units/L (5-40) 04/30/17 06:41 ALT 8 units/L (7-56) 04/30/17 06:41 Alkaline Phosphatase 55 units/L (35-129) 04/30/17 06:41 Troponin T 0.010 ng/mL (0.00-0.029) 04/29/17 13:02 NT-Pro-B Natriuret Pep 3655 pg/mL (0-900) H 04/29/17 13:02 Total Protein 5.7 g/dL (6.3-8.2) L 04/30/17 06:41 Albumin 3.8 g/dL (3.9-5) L 04/30/17 06:41 Albumin/Globulin Ratio 2.0 % 04/30/17 06:41 Lipase 52 units/L (13-60) 04/29/17 13:02 Vitamin B12 1192 pg/mL (211-911) H 04/30/17 08:17
[2017-05-01] MEDS: MORPHINE IV PRN ×2 (19:04→23:20)
[2017-05-02] MEDS: PROGRAF PO SCH ×2 (00:03→09:49)
[2017-05-02 06:19] LABS: Hematocrit 27.5 % (30.3-42.9); Hemoglobin 8.6 gm/dl (10.1-14.3); Mean Corpuscular HGB Conc 31 % (30-34); Mean Corpuscular Hemoglobin 26 pg (28-32); Mean Corpuscular Volume 85 fl (79-97); Platelet Count 260 K/mm3 (140-440); Red Blood Count 3.24 M/mm3 (3.65-5.03); White Blood Count 8.5 K/mm3 (4.5-11.0)
[2017-05-02 06:20] LABS: Red Cell Distribution Width 21.6 % (13.2-15.2)
[2017-05-02 06:46] LABS: Chloride 101.9 mmol/L (98-107); Potassium 3.7 mmol/L (3.6-5.0)
[2017-05-02] MEDS: APRESOLINE PO SCH (09:44)
[2017-05-02] MEDS: SODIUM BICARBONATE PO SCH (09:44)
[2017-05-02] MEDS: CELLCEPT PO SCH (09:47)
[2017-05-02] MEDS: PEPCID PO SCH (09:47)
[2017-05-02] MEDS: PROCARDIA XL PO SCH (09:48)
[2017-05-02] MEDS: ZOLOFT PO SCH (09:48)
[2017-05-02] MEDS: DELTASONE PO SCH (09:48)
[2017-05-02] MEDS: TOPROL XL PO SCH (09:49)
--- NOTE | 2017-05-02 09:51 | Discharge Summary ---
Providers - Providers Date of Admission: 04/29/17 13:52 Attending physician: CLINT BECKER MD 04/29/17 17:22 Consult to Physician [CONS] Routine Consulting Provider: FLOR LOVE Reason For Exam: Renal transplant Place consult to:: RENAL Notified:: A SERVICE Was contact made?: Yes Time called:: 18:00 04/30/17 06:57 Consult to Physician [CONS] Routine Consulting Provider: COCO CORTEZ Reason For Exam: CHF exac Place consult to:: Dr. Cortez Notified:: Marlene RN Phone number called:: Was contact made?: Yes If yes, spoke with:: Roseanne-answering service Time called:: 08:07 Hospitalization Reason for admission: congestive heart failure Condition: Stable Hospital course: 51-year-old female with a past medical history of hypertension, anemia, legal blindness, right BKA, and kidney and pancreas transplant at [place] presents to the hospital with complaints of shortness of breath.She was recently admitted to [facility] for CHF exacerbation for one week and discharged about 2 days ago. Patient complains of swelling to her left leg, orthopnea, PND, and dyspnea worse with movement. Patient complains of lower back. She is unable to lay flat any needs to sit straight up. She reports that in March she received IV contrast then required IV fluids causing the symptoms of volume overload. 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 Love recommended that she come to the hospital for evaluation. Patient states she had a history of diabetes prior to receiving transplant that has since improved. The hospital the patient was given IV Lasix with appropriate diuresis noted. Considering baseline renal dysfunction ACEI/ARB was not initiated by spironolactone was added. The patient improved and is back to her baseline. Her echocardiogram Showed an ejection fraction of 55-60%. Patient was also evaluated by recordak operator as noted above. No new changes were made to her transplant medications she is to continue her current medications. Discharge diagnosis Acute on chronic congestive heart failure possible systolic Acute kidney injury on chronic kidney disease secondary to vasomotor nephropathy Pancrease/Kidney Transplant Legal Blindness Hypokalemia Hx OF Radiocontrast nephropathy post uterine embolization AT [place] Severe anemia multifactorial in etiology now stable history of uterine bleed from fibroid postembolization also CKD. Uncontrolled hypertension Noncompliance with diet and lifestyle Right BKA Diabetes mellitus Disposition: DC-30 STILL A PATIENT Time spent for discharge: 35 mins Core Measure Documentation - Palliative Care Palliative Care/ Comfort Measures: Not Applicable - Core Measures Any of the following diagnoses?: heart failure - VTE Discharge Requirements Deep Vein Thrombosis/Pulmonary Embolism Present on Admission: No - Heart Failure Discharge Requirements TANIA/ARB for LVSD if EF <40%: No Reason for no TANIA/ARB: Renal impairment Beta ranjan at discharge: Yes Exam - Physical Exam Narrative exam: VITAL SIGNS: Reviewed. GENERAL: The patient appeared well nourished and normally developed. Vital signs as documented. HEAD: No signs of head trauma. EYES: Pupils are equal. Legally blind EARS: Hearing grossly intact. MOUTH: Oropharynx is normal. NECK: No adenopathy, no JVD. CHEST: Chest with clear breath sounds bilaterally. No wheezes, rales, or rhonchi. CARDIAC: Regular rate and rhythm. S1 and S2, without murmurs, gallops, or rubs. VASCULAR: No Edema. Peripheral pulses normal and equal in all extremities. ABDOMEN: Soft, without detectable tenderness. No sign of distention. No rebound or guarding, and no masses palpated. Bowel Sounds normal. MUSCULOSKELETAL: Good range of motion of all major joints except the right BKA with prosthesis. Extremities without clubbing, cyanosis or edema. NEUROLOGIC EXAM: Alert and oriented x 3. No focal sensory or strength deficits. Speech normal. Follows commands. PSYCHIATRIC: Mood normal. SKIN: No rash or lesions. - Constitutional Vitals: Temp Pulse Resp BP Pulse Ox 98.1 F 83 20 144/55 95 05/02/17 07:44 05/02/17 07:44 05/02/17 07:44 05/02/17 07:44 05/02/17 07:44 Plan Activity: advance as tolerated, fall precautions Diet: low salt, diabetic Special Instructions: record daily BP diary, record blood sugar diary Additional Instructions: follow with PCP in 3-7 days Follow up with: FLOR LOVE MD [Staff Physician] - 7 Days MALCOLM HEWITT MD [Staff Physician] - 7 Days Prescriptions: Spironolactone [Aldactone] 25 mg PO QDAY #30 tablet
[2017-05-02] MEDS: LASIX IV SCH (09:54)
--- NOTE | 2017-05-02 10:40 | Progress Note ---
Subjective Principal diagnosis: DHF Interval history: Patient was seen today for follow-up on multiple renal related issues Events of 24 hours vitals labs intake output medications were reviewed she is feeling much better shortness of breath is resolving well edema slowly improving Patient admits being noncompliant and is willing to change her diet Interdisciplinary Notes were also reviewed Past medical history: Reviewed Social history: Reviewed Allergies: Reviewed Medication: Reviewed Labs: Reviewed Physical examination Gen.: No acute distress HEENT: Oral mucosa moist, mild pallor no icterus Neck: Supple no thyromegaly nodular mass or JVD Chest: Clear to auscultation anteriorly Heart: Regular rate and rhythm S1 and S2 heard Abdomen: Soft nontender no renal bruit no CVA tenderness no suprapubic fullness Extremity: Edema approximately 1+ dry skin no purpuric rash Dermatology: Dry skin no rash Neurological: Alert awake oriented Assessment and plan Renal transplant recipient patient's renal function has been stable continue with immunosuppression like she has been taking Axillary hypertension: Currently now well controlled Hypokalemia hypertension currently much better with Aldactone needs basic metabolic profile next week in the office Recent radiocontrast injury from uterine embolization creatinine has currently normalized to her baseline Congestive heart failure counseling and education was done noncompliance noted Anemia due to uterine bleeding fibroid status post embolization she is stable for discharge to follow-up in the office next week will need basic metabolic profile done on the office Friday We'll continue to follow and make recommendation from renal standpoint Objective - Vital Signs Vital signs: Vital Signs - 12hr 05/01/17 05/01/17 05/01/17 23:20 23:28 23:38 Temperature 98.4 F Pulse Rate 75 Respiratory 22 18 Rate Respiratory 22 Rate [Thoracic back] Blood Pressure 153/67 O2 Sat by Pulse 97 Oximetry 05/01/17 05/02/17 05/02/17 23:50 04:57 07:44 Temperature 97.9 F 98.1 F Pulse Rate 80 83 Respiratory 20 18 20 Rate Respiratory Rate [Thoracic back] Blood Pressure 131/51 144/55 O2 Sat by Pulse 92 95 Oximetry 05/02/17 05/02/17 09:44 09:49 Temperature Pulse Rate 93 H 93 H Respiratory Rate Respiratory Rate [Thoracic back] Blood Pressure 144/55 144/55 O2 Sat by Pulse Oximetry - Lab 05/02/17 06:02 05/02/17 06:02 Most recent lab results Calcium 9.0 mg/dL (8.4-10.2) 05/02/17 06:02 Magnesium 1.80 mg/dL (1.7-2.3) 05/01/17 03:42
--- NOTE | 2017-05-02 11:18 | Progress Note ---
Assessment and Plan Assessment: Acute diastolic heart failure - nearing/at euvolemia HTN HLP Anemia Hypokalemia - improved Legal blindness H/o kidney and pancreas transplant H/o right BKA secondary to osteomyelitis S/p embolization of the uterine artery due to excessive menstrual bleeding on Plan: Currently stable cardiac status. Pt may discharge home from cardiology standpoint. Follow up in our [place] office with Dr. Macias on 05/08/2017 @ 1:45PM. Assessment and plan reviewed with pt at bedside. The patient has been seen in conjunction with Dr. Macias who agrees with the assessment and plan of care. Subjective Date of service: 05/02/17 Principal diagnosis: DHF Interval history: Pt resting comfortably, SOB improved. Objective Last Vital Signs Temp 98.1 F 05/02/17 07:44 Pulse 93 H 05/02/17 09:49 Resp 20 05/02/17 07:44 BP 144/55 05/02/17 09:49 Pulse Ox 95 05/02/17 07:44 - Physical Examination General: No Apparent Distress HEENT: Positive: PERRL, Normocephaly, Mucus Membranes Moist Neck: Positive: neck supple, trachea midline Cardiac: Positive: Reg Rate and Rhythm, S1/S2 Lungs: Positive: Decreased Breath Sounds Neuro: Positive: Grossly Intact Abdomen: Positive: Soft. Negative: Tender Skin: Positive: Clear. Negative: Rash, Wound Musculoskeletal: No Pain, other (right BKA) Extremities: Absent: edema - Labs and Meds CBC 05/02/17 Range/Units 06:02 WBC 8.5 (4.5-11.0) K/mm3 RBC 3.24 L (3.65-5.03) M/mm3 Hgb 8.6 L (10.1-14.3) gm/dl Hct 27.5 L (30.3-42.9) % Plt Count 260 (140-440) K/mm3 Comprehensive Metabolic Panel 05/02/17 Range/Units 06:02 Sodium 143 (137-145) mmol/L Potassium 3.7 (3.6-5.0) mmol/L Chloride 101.9 (98-107) mmol/L Carbon Dioxide 27 (22-30) mmol/L BUN 14 (7-17) mg/dL Creatinine 1.4 H (0.7-1.2) mg/dL Glucose 90 (65-100) mg/dL Calcium 9.0 (8.4-10.2) mg/dL - Imaging and Cardiology EKG: report reviewed, image reviewed Echo: pending, report reviewed (09/2007 showed normal LV-RV function, trivial MR) Cardiac cath: report reviewed (04/2003 showed diffuse luminal irregularity in left system, angiographically normal right system, the anterobasal, anterior, inferior, inferobasal and posterolateral barnett are moderately hypokinetic, EF 35 %) - EKG Sinus rhythms and dysrhythmias: sinus rhythm Myocardial infarction: septal IN (old age or ind, anterior IN (old age or i
[2017-05-02 12:05] VITALS: BP 163/65
== END 2017-05-02 16:15 | disposition home or self-care (01) | DRG 682 ==
LOC: ED 11:48 → 4A 13:52
PROVIDERS: ADMIT Internal Medicine; ATTEND Internal Medicine
DX: N17.0 Acute kidney failure with tubular necrosis (principal); I50.23 Acute on chronic systolic (congestive) heart failure; I13.0 Hypertensive heart and chronic kidney disease with heart failure and stage 1 through stage 4 chronic kidney disease, or unspecified chronic kidney disease; Z94.0 Kidney transplant status; Z94.83 Pancreas transplant status; D64.9 Anemia, unspecified; E87.6 Hypokalemia; N18.9 Chronic kidney disease, unspecified; E11.22 Type 2 diabetes mellitus with diabetic chronic kidney disease; H54.8 Legal blindness, as defined in USA; M19.90 Unspecified osteoarthritis, unspecified site; Z89.511 Acquired absence of right leg below knee; Z79.899 Other long term (current) drug therapy; Z88.5 Allergy status to narcotic agent; Z88.8 Allergy status to other drugs, medicaments and biological substances; Z91.11 Patient's noncompliance with dietary regimen; Z71.3 Dietary counseling and surveillance
CPT/HCPCS: 36415; 71010; 80048; 80053; 82607; 82747; 82962; 83036; 83550; 83690; 83735; 83880; 84484; 85025; 85027; 85610; 85730; 93005; 93010; 93306; 96374; A9270-GY; J1644; J1940; J2270; J7507; J7512; J7517

== ENCOUNTER 2017-05-12 13:25 | Inpatient (IN) | payer MEDICARE ==
[2017-05-12] MEDS ORDERED: ZOFRAN ONE (13:29)
[2017-05-12 15:13] LABS: Basophils # (Auto) 0.1 K/mm3 (0.0-0.1); Basophils % (Auto) 0.4 % (0.0-1.8); Eosinophils # (Auto) 0.2 K/mm3 (0.0-0.4); Eosinophils % (Auto) 1.1 % (0.0-4.3); Lymphocytes # (Auto) 0.5 K/mm3 (1.2-5.4); Lymphocytes % (Auto) 3.3 % (13.4-35.0); Mean Corpuscular HGB Conc 31 % (30-34); Mean Corpuscular Volume 83 fl (79-97); Monocytes # (Auto) 1.1 K/mm3 (0.0-0.8); Platelet Count 410 K/mm3 (140-440); Red Cell Distribution Width 19.8 % (13.2-15.2)
[2017-05-12] MEDS ORDERED: REGLAN IV ONE (15:14)
[2017-05-12] MEDS ORDERED: SUBLIMAZE IV ONE ×2 (15:14→18:05)
[2017-05-12 15:20] LABS: Hematocrit 37.3 % (30.3-42.9); Hemoglobin 11.4 gm/dl (10.1-14.3); Mean Corpuscular Hemoglobin 25 pg (28-32)
[2017-05-12 15:31] LABS: Albumin 4.4 g/dL (3.9-5); Calcium 9.8 mg/dL (8.4-10.2)
--- NOTE | 2017-05-12 15:34 | Emergency Department Report ---
HPI - General Chief Complaint: Abdominal Pain Time Seen by Provider: 05/12/17 15:06 - HPI HPI: Room 18 The patient is a 51-year-old female presenting with a chief complaint of abdominal pain nausea vomiting. Family states since 05/04/2017 patient has complained of midepigastric abdominal pain radiating to her back and has had intractable nausea and vomiting. There is been no history of fever or dysuria. The patient gets her pain a score of 9/10 Location: Abdomen Duration: 10 days Quality: Pain Severity: 9/10 Modifying factors: [see above] Context: [see above] Mode of transportation: [not driving] ED Past Medical Hx - Past Medical History Hx Hypertension: Yes Hx Diabetes: Yes Hx Arthritis: Yes Hx Kidney Stones: (PT HAS A HX KIDNEY DISEASE.) Additional medical history: Anemia, Blind in both eyes - Surgical History Past Surgical History?: Yes Hx Appendectomy: Yes Additional Surgical History: BKA right leg, Kidney Transplant 2004, - Family History Family history: no significant - Social History Smoking Status: Never Smoker Substance Use Type: None, Alcohol - Medications Home Medications: Home Medications Medication Instructions Recorded Confirmed Last Taken Type AtorvaSTATin [Lipitor] 10 mg PO QDAY 11/12/16 04/29/17 11/29/16 History Metoprolol Xl [Metoprolol 100 mg PO QDAY 11/12/16 04/29/17 11/29/16 History SUCCINATE ER TAB] Prednisone [predniSONE (Yamilex) ER 5 mg PO QAM 11/12/16 04/29/17 11/29/16 History TAB] Tacrolimus [Prograf] 2 mg PO BID 11/12/16 04/30/17 11/29/16 History Furosemide [Lasix TAB] 40 mg PO QDAY 04/29/17 04/29/17 Unknown History Hydralazine HCl 50 mg PO TID 04/29/17 04/29/17 Unknown History NIFEdipine XL [Procardia Xl] 60 mg PO QDAY 04/29/17 04/29/17 Unknown History Sertraline [Zoloft] 25 mg PO QDAY 04/29/17 04/29/17 Unknown History Sodium Bicarbonate 1,300 mg PO BID 04/29/17 04/29/17 Unknown History Tacrolimus [Prograf] 1 mg PO BID 04/29/17 04/29/17 Unknown History Mycophenolate [Cellcept] 500 mg PO BID tablet 05/02/17 Unknown Rx Spironolactone [Aldactone] 25 mg PO QDAY #30 tablet 05/02/17 Unknown Rx ED Review of Systems ROS: Stated complaint: ABD PAIN Other details as noted in HPI Constitutional: denies: fever Eyes: denies: eye pain ENT: denies: throat pain Cardiovascular: denies: chest pain Gastrointestinal: abdominal pain, nausea, vomiting Genitourinary: denies: dysuria Musculoskeletal: back pain Neurological: denies: headache Physical Exam - Physical Exam Vital Signs: Vital Signs 05/12/17 05/12/17 05/12/17 13:57 14:03 14:08 Temperature 97.7 F 97.7 F Pulse Rate 87 88 87 Respiratory 23 17 23 Rate Blood Pressure 125/59 Blood Pressure 125/59 125/59 [Right] O2 Sat by Pulse 99 100 99 Oximetry 05/12/17 14:15 Temperature Pulse Rate 87 Respiratory 21 Rate Blood Pressure 123/55 Blood Pressure [Right] O2 Sat by Pulse 99 Oximetry Physical Exam: GENERAL: The patient is well-developed well-nourished female lying on stretcher actively vomiting. [] HEENT: Normocephalic. Atraumatic. NECK: Supple. No meningitic signs are noted. There is no adenopathy noted. CHEST/LUNGS: Clear to auscultation. There is no respiratory distress noted. HEART/CARDIOVASCULAR: Regular. There is no tachycardia. There is no gallop rub or murmur. ABDOMEN: Abdomen is soft, with tenderness to palpation in the midepigastric region. There is no tenderness elsewhere in the abdomen. Absent Monzon sign. Patient has normal bowel sounds. There is no abdominal distention. SKIN: There is no rash. There is no edema. There is no diaphoresis. NEURO: The patient is awake, alert, and oriented. The patient is cooperative. The patient has normal speech MUSCULOSKELETAL: There is no evidence of acute injury. ED Course Vital Signs 05/12/17 05/12/17 05/12/17 13:57 14:03 14:08 Temperature 97.7 F 97.7 F Pulse Rate 87 88 87 Respiratory 23 17 23 Rate Blood Pressure 125/59 Blood Pressure 125/59 125/59 [Right] O2 Sat by Pulse 99 100 99 Oximetry 05/12/17 14:15 Temperature Pulse Rate 87 Respiratory 21 Rate Blood Pressure 123/55 Blood Pressure [Right] O2 Sat by Pulse 99 Oximetry ED Medical Decision Making - Lab Data Result diagrams: 05/12/17 14:56 05/12/17 14:56 Laboratory Tests 05/12/17 05/12/17 05/12/17 14:56 14:56 14:56 WBC 16.2 H RBC 4.50 Hgb 11.4 Hct 37.3 MCV 83 MCH 25 L MCHC 31 RDW 19.8 H Plt Count 410 Lymph % (Auto) 3.3 L [place] % (Auto) 7.0 Eos % (Auto) 1.1 Baso % (Auto) 0.4 Lymph # 0.5 L [place] # 1.1 H Eos # 0.2 Baso # 0.1 Seg Neutrophils % 88.2 H Seg Neutrophils # 14.3 H VBG pH Sodium 142 Potassium 3.1 L Chloride 98.0 Carbon Dioxide 20 L Anion Gap 27 BUN 21 H Creatinine 1.6 H Estimated GFR 34 BUN/Creatinine Ratio 13 Glucose 116 H Calcium 9.8 Total Bilirubin 0.50 AST 22 ALT 11 Alkaline Phosphatase 70 Total Creatine Kinase 47 CK-MB (CK-2) 1.4 CK-MB (CK-2) Rel Index 2.9 Troponin T 0.019 Total Protein 7.2 Albumin 4.4 Albumin/Globulin Ratio 1.6 Lipase 99 H Urine Bilirubin Urine RBC (Auto) U Epithel Cells (Auto) 05/12/17 05/12/17 15:33 16:00 WBC RBC Hgb Hct MCV MCH MCHC RDW Plt Count Lymph % (Auto) [place] % (Auto) Eos % (Auto) Baso % (Auto) Lymph # [place] # Eos # Baso # Seg Neutrophils % Seg Neutrophils # VBG pH 7.416 Sodium Potassium Chloride Carbon Dioxide Anion Gap BUN Creatinine Estimated GFR BUN/Creatinine Ratio Glucose Calcium Total Bilirubin AST ALT Alkaline Phosphatase Total Creatine Kinase CK-MB (CK-2) CK-MB (CK-2) Rel Index Troponin T Total Protein Albumin Albumin/Globulin Ratio Lipase Urine Bilirubin Neg Urine RBC (Auto) 9.0 U Epithel Cells (Auto) 8.0 Laboratory Tests 05/12/17 05/12/17 05/12/17 14:56 14:56 14:56 WBC 16.2 H RBC 4.50 Hgb 11.4 Hct 37.3 MCV 83 MCH 25 L MCHC 31 RDW 19.8 H Plt Count 410 Lymph % (Auto) 3.3 L [place] % (Auto) 7.0 Eos % (Auto) 1.1 Baso % (Auto) 0.4 Lymph # 0.5 L [place] # 1.1 H Eos # 0.2 Baso # 0.1 Seg Neutrophils % 88.2 H Seg Neutrophils # 14.3 H VBG pH Sodium 142 Potassium 3.1 L Chloride 98.0 Carbon Dioxide 20 L Anion Gap 27 BUN 21 H Creatinine 1.6 H Estimated GFR 34 BUN/Creatinine Ratio 13 Glucose 116 H Calcium 9.8 Total Bilirubin 0.50 AST 22 ALT 11 Alkaline Phosphatase 70 Total Creatine Kinase 47 CK-MB (CK-2) 1.4 CK-MB (CK-2) Rel Index 2.9 Troponin T 0.019 Total Protein 7.2 Albumin 4.4 Albumin/Globulin Ratio 1.6 Lipase 99 H Urine Color Urine Turbidity Urine pH Ur Specific [place] Urine Protein Urine Glucose (UA) Urine Ketones Urine Blood Urine Nitrite Urine Bilirubin Urine Urobilinogen Ur Leukocyte Esterase Urine WBC (Auto) Urine RBC (Auto) U Epithel Cells (Auto) Urine Bacteria (Auto) Urine WBC Clumps 05/12/17 05/12/17 15:33 16:00 WBC RBC Hgb Hct MCV MCH MCHC RDW Plt Count Lymph % (Auto) [place] % (Auto) Eos % (Auto) Baso % (Auto) Lymph # [place] # Eos # Baso # Seg Neutrophils % Seg Neutrophils # VBG pH 7.416 Sodium Potassium Chloride Carbon Dioxide Anion Gap BUN Creatinine Estimated GFR BUN/Creatinine Ratio Glucose Calcium Total Bilirubin AST ALT Alkaline Phosphatase Total Creatine Kinase CK-MB (CK-2) CK-MB (CK-2) Rel Index Troponin T Total Protein Albumin Albumin/Globulin Ratio Lipase Urine Color Yellow Urine Turbidity Cloudy Urine pH 5.0 Ur Specific [place] 1.013 Urine Protein 100 mg/dl Urine Glucose (UA) Neg Urine Ketones Neg Urine Blood Neg Urine Nitrite Neg Urine Bilirubin Neg Urine Urobilinogen < 2.0 Ur Leukocyte Esterase Mod Urine WBC (Auto) > 182.0 H Urine RBC (Auto) 9.0 U Epithel Cells (Auto) 8.0 Urine Bacteria (Auto) 3+ Urine WBC Clumps 3+ - EKG Data -: EKG Interpreted by [place] EKG shows normal: sinus rhythm Rate: normal - EKG Data When compared to previous EKG there are: previous EKG unavailable Interpretation: nonspecific ST-T wave ha - Radiology Data Radiology results: report reviewed (CT abdomen and pelvis), image reviewed (CT abdomen and pelvis) CT abdomen and pelvis without contrast: Midepigastric pain radiating to her back. Transverse images are obtained similar chest to the ischium with coronal and sagittal 2-D reformatted images. Imaging of the lung bases demonstrates extensive coronary vascular calcification but the visualized lungs are clear. The liver and spleen are unremarkable. The gallbladder contains several small calculi. The pancreas is atrophic. The renal parenchyma is severely thinned bilaterally with severe lipomatous changes of the central kidneys. There is diffuse calcification of the peripheral renal vessels and heavy calcification of the aorta iliac and major branches. The unopacified bowel is generally unremarkable. There is severe mesenteric lipomatosis as well as lipomatosis of the subcutaneous tissues. There is transplanted left pelvic kidney with the largest obstruction. The bones appear generally somewhat demineralized but no focal lesions. Impressions: 1. Atrophic kidneys with left pelvic renal transplant. 2. Atrophic pancreas. 3. Cholelithiasis. 4. Severe atherosclerosis of multiple vessels. Transcribed By: Toney Dictated By: MICHAEL DOLL MD Electronically Authenticated By: MICHAEL DOLL MD Signed Date/Time: 05/12/171621 DD/ 10 TD/TT: 05/12/171621 - Differential Diagnosis pancreatitis, ACS, small bowel obstruction, GERD Critical care attestation.: If time is entered above; I have spent that time in minutes in the direct care of this critically ill patient, excluding procedure time. ED Disposition Clinical Impression: Acute abdominal pain, Nausea & vomiting, Elevated lipase, UTI (urinary tract infection), Leukocytosis Disposition: -09 OP ADMIT IP TO THIS HOSP Is pt being admited?: Yes Does the pt Need Aspirin: No Condition: Fair Instructions: Abdominal Pain (ED) Referrals: KAY WHITE MD [Primary Care Provider] - 3-5 Days Time of Disposition: 16:44 (hospitalists paged (Dr. Riley))
[2017-05-12] MEDS ORDERED: NACL 0.9% 1000 ML 1,000 ML IV ONE (15:35)
[2017-05-12 16:30] LABS: Creatine Kinase MB 1.4 ng/mL (0.0-4.0)
--- NOTE | 2017-05-12 16:39 | Cat Scan Report ---
CT abdomen and pelvis without contrast: Midepigastric pain radiating to her back. Transverse images are obtained similar chest to the ischium with coronal and sagittal 2-D reformatted images. Imaging of the lung bases demonstrates extensive coronary vascular calcification but the visualized lungs are clear. The liver and spleen are unremarkable. The gallbladder contains several small calculi. The pancreas is atrophic. The renal parenchyma is severely thinned bilaterally with severe lipomatous changes of the central kidneys. There is diffuse calcification of the peripheral renal vessels and heavy calcification of the aorta iliac and major branches. The unopacified bowel is generally unremarkable. There is severe mesenteric lipomatosis as well as lipomatosis of the subcutaneous tissues. There is transplanted left pelvic kidney with the largest obstruction. The bones appear generally somewhat demineralized but no focal lesions. Impressions: 1. Atrophic kidneys with left pelvic renal transplant. 2. Atrophic pancreas. 3. Cholelithiasis. 4. Severe atherosclerosis of multiple vessels.
[2017-05-12 16:42] LABS: Bacteria,Urine 3+ /HPF (Negative); Bilirubin,Urine NEG (Negative); Blood,Urine NEG (Negative); Color,Urine Yellow (Yellow); Nitrite,Urine NEG (Negative); Urobilinogen,Urine < 2.0 mg/dL (<2.0)
[2017-05-12 16:43] LABS: WBC,Urine > 182.0 /HPF (0.0-6.0)
--- NOTE | 2017-05-12 18:02 | History and Physical Report ---
History of Present Illness Chief complaint: I feel sick, and my stomach hurts History of present illness: 51 YO Female with OA, DM, HTN, CKD S/P renal transplant currently on graft rejection therapy presents to ED for evaluation. Pt states that she has experienced abdominal pain, nausea and multiple episodes of vomiting over the past week, with worsening symptoms over the past 2 days. Pt states that her abdominal pain is 9/10, epigastric, radiates to her back, worse with moving, and standings, mildly improved with rest. Pt is unable to tolerate oral intake. Pt denies fever, chills, dysuria, hematuria, BRBPR, Trauma, productive cough, or recent ill contacts. Pt seen and evaluated in ED and found to be in distress and to have UTI,SIRS. [facility] service notified and discussed patient care with DR. Henriquez who recommends patient be admitted and treated for UTI with IV antibiotics, and resumption of her graft rejection drugs. Pt does not require transfer to [facility], Transplant Team as per Dr. Henriquez. Nephrology team consulted in ED. If further questions of concerns during hospital course, Transplant service requests a call for consultation. Past History Past Medical History: anemia, arthritis, diabetes, hypertension, renal failure Past Surgical History: appendectomy, Other (Renal transplant, R BKA) Social history: , lives with family. denies: smoking, alcohol abuse, prescription drug abuse Family history: diabetes, hypertension Medications and Allergies Allergies Allergy/AdvReac Type Severity Reaction Status Date / Time adhesive tape AdvReac Rash Verified 04/29/17 12:05 hydromorphone HCl AdvReac Anaphylaxis Verified 04/29/17 12:05 [From Dilaudid] piperacillin sodium AdvReac Diarrhea Verified 04/29/17 12:05 [From Zosyn] tazobactam sodium AdvReac Diarrhea Verified 04/29/17 12:05 [From Zosyn] Home Medications Medication Instructions Recorded Confirmed Last Taken Type AtorvaSTATin [Lipitor] 10 mg PO QDAY 11/12/16 04/29/17 11/29/16 History Metoprolol Xl [Metoprolol 100 mg PO QDAY 11/12/16 04/29/17 11/29/16 History SUCCINATE ER TAB] Prednisone [predniSONE (Yamilex) ER 5 mg PO QAM 11/12/16 04/29/17 11/29/16 History TAB] Tacrolimus [Prograf] 2 mg PO BID 11/12/16 04/30/17 11/29/16 History Furosemide [Lasix TAB] 40 mg PO QDAY 04/29/17 04/29/17 Unknown History Hydralazine HCl 50 mg PO TID 04/29/17 04/29/17 Unknown History NIFEdipine XL [Procardia Xl] 60 mg PO QDAY 04/29/17 04/29/17 Unknown History Sertraline [Zoloft] 25 mg PO QDAY 04/29/17 04/29/17 Unknown History Sodium Bicarbonate 1,300 mg PO BID 04/29/17 04/29/17 Unknown History Tacrolimus [Prograf] 1 mg PO BID 04/29/17 04/29/17 Unknown History Mycophenolate [Cellcept] 500 mg PO BID tablet 05/02/17 Unknown Rx Spironolactone [Aldactone] 25 mg PO QDAY #30 tablet 05/02/17 Unknown Rx Active Meds: Active Medications Sodium Chloride (Nacl 0.9% 1000 Ml) 1,000 mls @ 250 mls/hr IV ONCE ONE Stop: 05/12/17 19:34 Last Admin: 05/12/17 16:30 Dose: 250 mls/hr Review of Systems Constitutional: no weight loss, no weight gain, no fever, no chills Ears, nose, mouth and throat: no ear pain, no ear discharge, no tinnitis, no decreased hearing, no nose pain, no nasal congestion Breasts: no change in shape, no swelling, no mass Cardiovascular: no chest pain, no orthopnea, no palpitations, no rapid/ irregular heart beat, no edema, no syncope Respiratory: no cough, no cough with sputum, no excessive sputum, no hemoptysis , no shortness of breath Gastrointestinal: abdominal pain, nausea, vomiting, no diarrhea, no constipation , no change in bowel habits, no hematemesis, no coffee ground emesis, no BRBPR, no melena, no hematochezia Genitourinary Female: no pelvic pain, no flank pain, no menorrhagia, no dysuria , no urinary frequency, no urgency Rectal: no pain, no incontinence, no bleeding Musculoskeletal: no neck stiffness, no neck pain, no shooting arm pain, no arm numbness/tingling, no low back pain Integumentary: no rash, no pruritis, no redness, no sores, no wounds, no jaundice, no boils Neurological: no head injury, no transient paralysis, no paralysis, no weakness , no parathesias, no numbness, no tingling, no seizures, no syncope Psychiatric: no anxiety, no memory loss, no change in sleep habits, no sleep disturbances, no insomnia, no hypersomnia, no change in appetite Endocrine: no cold intolerance, no heat intolerance, no polyphagia, no excessive thirst, no polydipsia, no polyuria, no nocturia Hematologic/Lymphatic: no easy bruising, no easy bleeding Allergic/Immunologic: no urticaria, no allergic rhinitis, no wheezing Exam - Constitutional Vitals: Temp Pulse Resp BP Pulse Ox 97.7 F 89 20 144/58 98 05/12/17 14:08 05/12/17 17:16 05/12/17 17:16 05/12/17 17:16 05/12/17 17:16 General appearance: Present: mild distress - EENT Eyes: Present: PERRL ENT: hearing intact, clear oral mucosa - Neck Neck: Present: supple, normal ROM - Respiratory Respiratory effort: normal Respiratory: bilateral: CTA - Cardiovascular Heart Sounds: Present: S1 & S2. Absent: rub, click - Extremities Extremities: pulses symmetrical, No edema Peripheral Pulses: within normal limits - Abdominal General gastrointestinal: Present: soft, tender Localized gastrointestinal: tender: epigastric periumbilical, guarding: epigastric periumbilical Female genitourinary: Present: normal - Rectal Rectal Exam: normal exam-external/orifice - Integumentary Integumentary: Present: clear - Musculoskeletal Musculoskeletal: gait normal, strength equal bilaterally - Psychiatric Psychiatric: appropriate mood/affect, intact judgment & insight - Neurologic Neurologic: CNII-XII intact, moves all extremities Results - Labs CBC & Chem 7: 05/12/17 14:56 05/12/17 14:56 Labs: Abnormal lab results 05/12/17 05/12/17 05/12/17 Range/Units 14:56 14:56 16:00 WBC 16.2 H (4.5-11.0) K/mm3 MCH 25 L (28-32) pg RDW 19.8 H (13.2-15.2) % Lymph % (Auto) 3.3 L (13.4-35.0) % Lymph # 0.5 L (1.2-5.4) K/mm3 [place] # 1.1 H (0.0-0.8) K/mm3 Seg Neutrophils % 88.2 H (40.0-70.0) % Seg Neutrophils # 14.3 H (1.8-7.7) K/mm3 Potassium 3.1 L (3.6-5.0) mmol/L Carbon Dioxide 20 L (22-30) mmol/L BUN 21 H (7-17) mg/dL Creatinine 1.6 H (0.7-1.2) mg/dL Glucose 116 H (65-100) mg/dL Lipase 99 H (13-60) units/L Urine WBC (Auto) > 182.0 H (0.0-6.0) /HPF Assessment and Plan - Patient Problems (1) UTI (urinary tract infection) Current Visit: Yes Status: Acute Qualifiers: Encounter type: initial encounter Plan to address problem: IV abx, IVF, supportive care, urine electrolytes, nephrology consulted, Transplant survice , [facility] notified and recommend admission with IV abx treatment for UTI. (2) ARF (acute renal failure) Current Visit: Yes Status: Acute Qualifiers: Acute renal failure type: with acute tubular necrosis Qualified Code(s): N17.0 - Acute kidney failure with tubular necrosis Plan to address problem: IVF resuscitation, urine electrolytes, monitor uop q shift, (3) SIRS (systemic inflammatory response syndrome) Current Visit: Yes Status: Acute Plan to address problem: IV abx, supportive care, (4) Diabetes Current Visit: Yes Status: Acute Plan to address problem: ADA diet, insulin, accu check (5) HTN (hypertension) Current Visit: Yes Status: Acute Qualifiers: Hypertension type: essential hypertension Qualified Code(s): I10 - Essential (primary) hypertension Plan to address problem: monitor bp q shift, IV hydralazine for systolic above 155, continue medical management (6) DVT prophylaxis Current Visit: Yes Status: Acute
[2017-05-12] MEDS ORDERED: PROVENTIL IH PRN (18:22)
[2017-05-12] MEDS ORDERED: TYLENOL PO PRN (18:22)
[2017-05-12] MEDS ORDERED: ZOFRAN IV PRN (18:22)
[2017-05-12] MEDS ORDERED: NACL 0.45% 1000 ML 1,000 ML IV SCH (19:00)
[2017-05-12] MEDS ORDERED: NON-FORMULARY (Hydralazine Hcl [Hydralazine Hcl] 50 MG) PO SCH (20:00)
[2017-05-12] MEDS: APRESOLINE PO SCH (21:10)
[2017-05-12] MEDS: SODIUM BICARBONATE PO SCH (21:10)
[2017-05-12] MEDS ORDERED: PROGRAF PO SCH (22:00)
[2017-05-12] MEDS: MORPHINE IV PRN (23:14)
[2017-05-13] MEDS: CELLCEPT PO SCH ×3 (03:08→21:59)
[2017-05-13] MEDS: PROGRAF PO SCH ×3 (03:08→21:59)
--- NOTE | 2017-05-13 07:31 | Progress Note ---
<MARJAN FRANZ - Last Filed: 05/13/17 13:59> Assessment and Plan Assessment and plan: Patient is a 51 years old female with OA, DM, HTN, CKD S/P renal transplant currently on graft rejection therapy presents to ED abdominal pain, nausea and multiple episodes of vomiting over the past week, with worsening symptoms over the past 2 days. Sepsis due urinary tract infection Blood and urine cultures Continue IV fluid hydration Continue IV Rocephin. Supportive care Urinary tract infection Follow urine culture Continue IV fluid hydration Continue IV Rocephin. Acute renal failure/vasomotor nephropathy Continue IV fluid Nephrology following Transplant [facility] notified and recommend admission with IV abx treatment for UTI. Hypokalemia Replaced Closely monitor electrolytes Diabetes mellitus Accu-Chek before meals and at bedtime Sliding scale insulin/NovoLog ADA carbohydrate consistent diet Hypertensive urgency Continue home antihypertensive medications Closely monitor blood pressure DVT prophylaxis Heparin History Interval history: Patient complains lower abdominal discomfort. She denies urgency, frequency or burning sensation. Labs and nursing notes reviewed. Hospitalist Physical - Constitutional Vitals: Temp Pulse Resp BP Pulse Ox 98.4 F 80 18 166/58 93 05/13/17 04:57 05/13/17 04:57 05/13/17 04:57 05/13/17 04:57 05/13/17 04:57 General appearance: Present: mild distress - EENT Eyes: Present: PERRL ENT: hearing intact - Neck Neck: Present: supple - Respiratory Respiratory effort: normal - Extremities Extremity abnormal: other (RBKA) - Abdominal General gastrointestinal: soft, non-tender - Integumentary Integumentary: Present: clear, warm, dry - Psychiatric Psychiatric: appropriate mood/affect - Neurologic Neurologic: CNII-XII intact - Allied Health Allied health notes reviewed: nursing Results - Labs CBC & Chem 7: 05/12/17 14:56 05/12/17 14:56 Labs: Laboratory Last Values WBC 16.2 K/mm3 (4.5-11.0) H 05/12/17 14:56 RBC 4.50 M/mm3 (3.65-5.03) 05/12/17 14:56 Hgb 11.4 gm/dl (10.1-14.3) 05/12/17 14:56 Hct 37.3 % (30.3-42.9) 05/12/17 14:56 MCV 83 fl (79-97) 05/12/17 14:56 MCH 25 pg (28-32) L 05/12/17 14:56 MCHC 31 % (30-34) 05/12/17 14:56 RDW 19.8 % (13.2-15.2) H 05/12/17 14:56 Plt Count 410 K/mm3 (140-440) 05/12/17 14:56 Lymph % (Auto) 3.3 % (13.4-35.0) L 05/12/17 14:56 [place] % (Auto) 7.0 % (0.0-7.3) 05/12/17 14:56 Eos % (Auto) 1.1 % (0.0-4.3) 05/12/17 14:56 Baso % (Auto) 0.4 % (0.0-1.8) 05/12/17 14:56 Lymph # 0.5 K/mm3 (1.2-5.4) L 05/12/17 14:56 [place] # 1.1 K/mm3 (0.0-0.8) H 05/12/17 14:56 Eos # 0.2 K/mm3 (0.0-0.4) 05/12/17 14:56 Baso # 0.1 K/mm3 (0.0-0.1) 05/12/17 14:56 Seg Neutrophils % 88.2 % (40.0-70.0) H 05/12/17 14:56 Seg Neutrophils # 14.3 K/mm3 (1.8-7.7) H 05/12/17 14:56 VBG pH 7.416 (7.320-7.420) 05/12/17 15:33 Sodium 142 mmol/L (137-145) 05/12/17 14:56 Potassium 3.1 mmol/L (3.6-5.0) L 05/12/17 14:56 Chloride 98.0 mmol/L (98-107) 05/12/17 14:56 Carbon Dioxide 20 mmol/L (22-30) L 05/12/17 14:56 Anion Gap 27 mmol/L 05/12/17 14:56 BUN 21 mg/dL (7-17) H 05/12/17 14:56 Creatinine 1.6 mg/dL (0.7-1.2) H 05/12/17 14:56 Estimated GFR 34 ml/min 05/12/17 14:56 BUN/Creatinine Ratio 13 % 05/12/17 14:56 Glucose 116 mg/dL (65-100) H 05/12/17 14:56 Calcium 9.8 mg/dL (8.4-10.2) 05/12/17 14:56 Total Bilirubin 0.50 mg/dL (0.1-1.2) 05/12/17 14:56 AST 22 units/L (5-40) 05/12/17 14:56 ALT 11 units/L (7-56) 05/12/17 14:56 Alkaline Phosphatase 70 units/L (35-129) 05/12/17 14:56 Total Creatine Kinase 47 units/L (30-135) 05/12/17 14:56 CK-MB (CK-2) 1.4 ng/mL (0.0-4.0) 05/12/17 14:56 CK-MB (CK-2) Rel Index 2.9 (0-4) 05/12/17 14:56 Troponin T 0.019 ng/mL (0.00-0.029) 05/12/17 14:56 Total Protein 7.2 g/dL (6.3-8.2) 05/12/17 14:56 Albumin 4.4 g/dL (3.9-5) 05/12/17 14:56 Albumin/Globulin Ratio 1.6 % 05/12/17 14:56 Lipase 99 units/L (13-60) H 05/12/17 14:56 Urine Color Yellow (Yellow) 05/12/17 16:00 Urine Turbidity Cloudy (Clear) 05/12/17 16:00 Urine pH 5.0 (5.0-7.0) 05/12/17 16:00 Ur Specific [place] 1.013 (1.003-1.030) 05/12/17 16:00 Urine Protein 100 mg/dl mg/dL (Negative) 05/12/17 16:00 Urine Glucose (UA) Neg mg/dL (Negative) 05/12/17 16:00 Urine Ketones Neg mg/dL (Negative) 05/12/17 16:00 Urine Blood Neg (Negative) 05/12/17 16:00 Urine Nitrite Neg (Negative) 05/12/17 16:00 Urine Bilirubin Neg (Negative) 05/12/17 16:00 Urine Urobilinogen < 2.0 mg/dL (<2.0) 05/12/17 16:00 Ur Leukocyte Esterase Mod (Negative) 05/12/17 16:00 Urine WBC (Auto) > 182.0 /HPF (0.0-6.0) H 05/12/17 16:00 Urine RBC (Auto) 9.0 /HPF (0.0-6.0) 05/12/17 16:00 U Epithel Cells (Auto) 8.0 /HPF (0-13.0) 05/12/17 16:00 Urine Bacteria (Auto) 3+ /HPF (Negative) 05/12/17 16:00 Urine WBC Clumps 3+ /HPF 05/12/17 16:00 <GAGE MASON R - Last Filed: 05/13/17 18:34> Assessment and Plan Assessment and plan: I saw and evaluated the patient. I agree with the findings and the plan of care as documented in the Nurse Practitioner's~note. Hospitalist Physical - Constitutional Vitals: Temp Pulse Resp BP Pulse Ox 98.1 F 81 20 146/69 97 05/13/17 15:30 05/13/17 15:30 05/13/17 15:30 05/13/17 15:30 05/13/17 15:30 Results - Labs CBC & Chem 7: 05/13/17 13:38 05/13/17 13:38 Labs: Laboratory Last Values WBC 10.8 K/mm3 (4.5-11.0) 05/13/17 13:38 RBC 4.03 M/mm3 (3.65-5.03) 05/13/17 13:38 Hgb 10.3 gm/dl (10.1-14.3) 05/13/17 13:38 Hct 33.9 % (30.3-42.9) 05/13/17 13:38 MCV 84 fl (79-97) 05/13/17 13:38 MCH 25 pg (28-32) L 05/13/17 13:38 MCHC 30 % (30-34) 05/13/17 13:38 RDW 19.3 % (13.2-15.2) H 05/13/17 13:38 Plt Count 345 K/mm3 (140-440) 05/13/17 13:38 Lymph % (Auto) 6.0 % (13.4-35.0) L 05/13/17 13:38 [place] % (Auto) 10.5 % (0.0-7.3) H 05/13/17 13:38 Eos % (Auto) 1.5 % (0.0-4.3) 05/13/17 13:38 Baso % (Auto) 0.5 % (0.0-1.8) 05/13/17 13:38 Lymph # 0.7 K/mm3 (1.2-5.4) L 05/13/17 13:38 [place] # 1.1 K/mm3 (0.0-0.8) H 05/13/17 13:38 Eos # 0.2 K/mm3 (0.0-0.4) 05/13/17 13:38 Baso # 0.1 K/mm3 (0.0-0.1) 05/13/17 13:38 Seg Neutrophils % 81.5 % (40.0-70.0) H 05/13/17 13:38 Seg Neutrophils # 8.8 K/mm3 (1.8-7.7) H 05/13/17 13:38 VBG pH 7.416 (7.320-7.420) 05/12/17 15:33 Sodium 141 mmol/L (137-145) 05/13/17 13:38 Potassium 3.8 mmol/L (3.6-5.0) D 05/13/17 13:38 Chloride 99.7 mmol/L (98-107) 05/13/17 13:38 Carbon Dioxide 22 mmol/L (22-30) 05/13/17 13:38 Anion Gap 23 mmol/L 05/13/17 13:38 BUN 17 mg/dL (7-17) 05/13/17 13:38 Creatinine 1.4 mg/dL (0.7-1.2) H 05/13/17 13:38 Estimated GFR 40 ml/min 05/13/17 13:38 BUN/Creatinine Ratio 12 % 05/13/17 13:38 Glucose 82 mg/dL (65-100) 05/13/17 13:38 POC Glucose 103 (70-105) 05/13/17 11:42 Lactic Acid 3.80 mmol/L (0.7-2.0) H* 05/13/17 14:06 Calcium 9.2 mg/dL (8.4-10.2) 05/13/17 13:38 Total Bilirubin 0.40 mg/dL (0.1-1.2) 05/13/17 13:38 AST 20 units/L (5-40) 05/13/17 13:38 ALT 10 units/L (7-56) 05/13/17 13:38 Alkaline Phosphatase 64 units/L (35-129) 05/13/17 13:38 Total Creatine Kinase 47 units/L (30-135) 05/12/17 14:56 CK-MB (CK-2) 1.4 ng/mL (0.0-4.0) 05/12/17 14:56 CK-MB (CK-2) Rel Index 2.9 (0-4) 05/12/17 14:56 Troponin T 0.019 ng/mL (0.00-0.029) 05/12/17 14:56 Total Protein 6.6 g/dL (6.3-8.2) 05/13/17 13:38 Albumin 4.1 g/dL (3.9-5) 05/13/17 13:38 Albumin/Globulin Ratio 1.6 % 05/13/17 13:38 Lipase 99 units/L (13-60) H 05/12/17 14:56 Urine Color Yellow (Yellow) 05/12/17 16:00 Urine Turbidity Cloudy (Clear) 05/12/17 16:00 Urine pH 5.0 (5.0-7.0) 05/12/17 16:00 Ur Specific [place] 1.013 (1.003-1.030) 05/12/17 16:00 Urine Protein 100 mg/dl mg/dL (Negative) 05/12/17 16:00 Urine Glucose (UA) Neg mg/dL (Negative) 05/12/17 16:00 Urine Ketones Neg mg/dL (Negative) 05/12/17 16:00 Urine Blood Neg (Negative) 05/12/17 16:00 Urine Nitrite Neg (Negative) 05/12/17 16:00 Urine Bilirubin Neg (Negative) 05/12/17 16:00 Urine Urobilinogen < 2.0 mg/dL (<2.0) 05/12/17 16:00 Ur Leukocyte Esterase Mod (Negative) 05/12/17 16:00 Urine WBC (Auto) > 182.0 /HPF (0.0-6.0) H 05/12/17 16:00 Urine RBC (Auto) 9.0 /HPF (0.0-6.0) 05/12/17 16:00 U Epithel Cells (Auto) 8.0 /HPF (0-13.0) 05/12/17 16:00 Urine Bacteria (Auto) 3+ /HPF (Negative) 05/12/17 16:00 Urine WBC Clumps 3+ /HPF 05/12/17 16:00
[2017-05-13] MEDS: APRESOLINE PO SCH ×3 (08:51→21:59)
[2017-05-13] MEDS ORDERED: K-DUR PO ONE (10:00)
[2017-05-13] MEDS ORDERED: NON-FORMULARY (Prednisone [Prednisone (Rayos) Er Tab] 5 MG) PO SCH (10:00)
[2017-05-13] MEDS ORDERED: NACL 0.45% 1000 ML IV SCH (10:00)
[2017-05-13] MEDS: ZOLOFT PO SCH (10:23)
[2017-05-13] MEDS: LEVAQUIN 750MG/150ML 750 MG/150 ML BAG IV SCH (10:23)
[2017-05-13] MEDS: SODIUM BICARBONATE PO SCH ×2 (10:23→21:59)
[2017-05-13] MEDS: TOPROL XL PO SCH (10:23)
[2017-05-13] MEDS: LASIX PO SCH (10:25)
[2017-05-13] MEDS: PROCARDIA XL PO SCH (10:25)
[2017-05-13] MEDS: DELTASONE PO SCH (10:25)
[2017-05-13] MEDS: ALDACTONE PO SCH (10:26)
[2017-05-13] MEDS: ZOFRAN IV PRN ×3 (10:35→18:37)
[2017-05-13] MEDS: MORPHINE IV PRN ×4 (10:44→22:10)
[2017-05-13 15:00] LABS: Albumin 4.1 g/dL (3.9-5); Calcium 9.2 mg/dL (8.4-10.2)
[2017-05-13] MEDS ORDERED: FLONASE NS SCH (16:00)
[2017-05-13 16:07] LABS: Basophils # (Auto) 0.1 K/mm3 (0.0-0.1); Basophils % (Auto) 0.5 % (0.0-1.8); Eosinophils # (Auto) 0.2 K/mm3 (0.0-0.4); Eosinophils % (Auto) 1.5 % (0.0-4.3); Lymphocytes # (Auto) 0.7 K/mm3 (1.2-5.4); Mean Corpuscular HGB Conc 30 % (30-34); Mean Corpuscular Volume 84 fl (79-97); Monocytes # (Auto) 1.1 K/mm3 (0.0-0.8); Monocytes % (Auto) 10.5 % (0.0-7.3); Platelet Count 345 K/mm3 (140-440); Red Blood Count 4.03 M/mm3 (3.65-5.03); Red Cell Distribution Width 19.3 % (13.2-15.2)
[2017-05-13 16:10] LABS: Hematocrit 33.9 % (30.3-42.9); Hemoglobin 10.3 gm/dl (10.1-14.3); Mean Corpuscular Hemoglobin 25 pg (28-32)
[2017-05-13] MEDS: FLONASE NS SCH (22:00)
[2017-05-14] MEDS ORDERED: PERCOCET 5/325 PO PRN (00:28)
[2017-05-14 05:27] LABS: Basophils # (Auto) 0.1 K/mm3 (0.0-0.1); Basophils % (Auto) 0.6 % (0.0-1.8); Eosinophils # (Auto) 0.3 K/mm3 (0.0-0.4); Eosinophils % (Auto) 2.5 % (0.0-4.3); Hematocrit 30.5 % (30.3-42.9); Hemoglobin 9.7 gm/dl (10.1-14.3); Lymphocytes # (Auto) 1.1 K/mm3 (1.2-5.4); Lymphocytes % (Auto) 10.4 % (13.4-35.0); Mean Corpuscular HGB Conc 32 % (30-34); Mean Corpuscular Hemoglobin 26 pg (28-32); Mean Corpuscular Volume 82 fl (79-97); Monocytes # (Auto) 1.4 K/mm3 (0.0-0.8); Monocytes % (Auto) 13.9 % (0.0-7.3); Platelet Count 299 K/mm3 (140-440); Red Blood Count 3.71 M/mm3 (3.65-5.03); Red Cell Distribution Width 19.3 % (13.2-15.2)
[2017-05-14 05:49] LABS: Calcium 8.6 mg/dL (8.4-10.2)
--- NOTE | 2017-05-14 08:52 | Progress Note ---
<MARJAN FRANZ - Last Filed: 05/14/17 14:46> Assessment and Plan Assessment and plan: Patient is a 51 years old female with OA, DM, HTN, CKD S/P renal transplant currently on graft rejection therapy presents to ED abdominal pain, nausea and multiple episodes of vomiting over the past week, with worsening symptoms over the past 2 days. Sepsis due urinary tract infection urine culture positive for gram-negative jose a Continue IV fluid hydration Continue IV Rocephin. Supportive care Urinary tract infection Secondary to gram-negative jose a Follow urine culture Continue IV fluid hydration Continue IV Rocephin. Acute renal failure/vasomotor nephropathy Serum creatinine continues to trend down, yesterday was 1.6 today 1.4 Continue IV fluid Nephrology following Transplant [facility] notified and recommend admission with IV abx treatment for UTI. Hypokalemia Replaced Closely monitor electrolytes Diabetes mellitus Accu-Chek before meals and at bedtime Sliding scale insulin/NovoLog ADA carbohydrate consistent diet Hypertensive urgency Continue home antihypertensive medications Closely monitor blood pressure DVT prophylaxis Heparin History Interval history: Patient complains lower abdominal discomfort. She denies urgency, frequency or burning sensation. Labs and nursing notes reviewed. Hospitalist Physical - Constitutional Vitals: Temp Pulse Resp BP Pulse Ox 98.0 F 78 20 166/70 99 05/14/17 07:37 05/14/17 07:37 05/14/17 07:37 05/14/17 07:37 05/14/17 07:37 General appearance: Present: mild distress, other (Patient is legally blind.) - EENT Eyes: Present: PERRL ENT: hearing intact - Neck Neck: Present: supple - Respiratory Respiratory effort: normal - Cardiovascular Rhythm: regular Heart Sounds: Present: S1 & S2 - Extremities Extremity abnormal: other (RBKA) - Abdominal General gastrointestinal: soft, non-tender - Integumentary Integumentary: Present: clear, warm, dry - Psychiatric Psychiatric: appropriate mood/affect - Neurologic Neurologic: CNII-XII intact - Allied Health Allied health notes reviewed: nursing Results - Labs CBC & Chem 7: 05/14/17 05:04 05/14/17 05:04 Labs: Laboratory Last Values WBC 10.1 K/mm3 (4.5-11.0) 05/14/17 05:04 RBC 3.71 M/mm3 (3.65-5.03) 05/14/17 05:04 Hgb 9.7 gm/dl (10.1-14.3) L 05/14/17 05:04 Hct 30.5 % (30.3-42.9) 05/14/17 05:04 MCV 82 fl (79-97) 05/14/17 05:04 MCH 26 pg (28-32) L 05/14/17 05:04 MCHC 32 % (30-34) 05/14/17 05:04 RDW 19.3 % (13.2-15.2) H 05/14/17 05:04 Plt Count 299 K/mm3 (140-440) 05/14/17 05:04 Lymph % (Auto) 10.4 % (13.4-35.0) L 05/14/17 05:04 [place] % (Auto) 13.9 % (0.0-7.3) H 05/14/17 05:04 Eos % (Auto) 2.5 % (0.0-4.3) 05/14/17 05:04 Baso % (Auto) 0.6 % (0.0-1.8) 05/14/17 05:04 Lymph # 1.1 K/mm3 (1.2-5.4) L 05/14/17 05:04 [place] # 1.4 K/mm3 (0.0-0.8) H 05/14/17 05:04 Eos # 0.3 K/mm3 (0.0-0.4) 05/14/17 05:04 Baso # 0.1 K/mm3 (0.0-0.1) 05/14/17 05:04 Seg Neutrophils % 72.6 % (40.0-70.0) H 05/14/17 05:04 Seg Neutrophils # 7.3 K/mm3 (1.8-7.7) 05/14/17 05:04 VBG pH 7.416 (7.320-7.420) 05/12/17 15:33 Sodium 138 mmol/L (137-145) 05/14/17 05:04 Potassium 3.0 mmol/L (3.6-5.0) L D 05/14/17 05:04 Chloride 98.2 mmol/L (98-107) 05/14/17 05:04 Carbon Dioxide 23 mmol/L (22-30) 05/14/17 05:04 Anion Gap 20 mmol/L 05/14/17 05:04 BUN 15 mg/dL (7-17) 05/14/17 05:04 Creatinine 1.4 mg/dL (0.7-1.2) H 05/14/17 05:04 Estimated GFR 40 ml/min 05/14/17 05:04 BUN/Creatinine Ratio 11 % 05/14/17 05:04 Glucose 85 mg/dL (65-100) 05/14/17 05:04 POC Glucose 103 (70-105) 05/13/17 11:42 Lactic Acid 3.80 mmol/L (0.7-2.0) H* 05/13/17 14:06 Calcium 8.6 mg/dL (8.4-10.2) 05/14/17 05:04 Total Bilirubin 0.40 mg/dL (0.1-1.2) 05/13/17 13:38 AST 20 units/L (5-40) 05/13/17 13:38 ALT 10 units/L (7-56) 05/13/17 13:38 Alkaline Phosphatase 64 units/L (35-129) 05/13/17 13:38 Total Creatine Kinase 47 units/L (30-135) 05/12/17 14:56 CK-MB (CK-2) 1.4 ng/mL (0.0-4.0) 05/12/17 14:56 CK-MB (CK-2) Rel Index 2.9 (0-4) 05/12/17 14:56 Troponin T 0.019 ng/mL (0.00-0.029) 05/12/17 14:56 Total Protein 6.6 g/dL (6.3-8.2) 05/13/17 13:38 Albumin 4.1 g/dL (3.9-5) 05/13/17 13:38 Albumin/Globulin Ratio 1.6 % 05/13/17 13:38 Lipase 99 units/L (13-60) H 05/12/17 14:56 Urine Color Yellow (Yellow) 05/12/17 16:00 Urine Turbidity Cloudy (Clear) 05/12/17 16:00 Urine pH 5.0 (5.0-7.0) 05/12/17 16:00 Ur Specific [place] 1.013 (1.003-1.030) 05/12/17 16:00 Urine Protein 100 mg/dl mg/dL (Negative) 05/12/17 16:00 Urine Glucose (UA) Neg mg/dL (Negative) 05/12/17 16:00 Urine Ketones Neg mg/dL (Negative) 05/12/17 16:00 Urine Blood Neg (Negative) 05/12/17 16:00 Urine Nitrite Neg (Negative) 05/12/17 16:00 Urine Bilirubin Neg (Negative) 05/12/17 16:00 Urine Urobilinogen < 2.0 mg/dL (<2.0) 05/12/17 16:00 Ur Leukocyte Esterase Mod (Negative) 05/12/17 16:00 Urine WBC (Auto) > 182.0 /HPF (0.0-6.0) H 05/12/17 16:00 Urine RBC (Auto) 9.0 /HPF (0.0-6.0) 05/12/17 16:00 U Epithel Cells (Auto) 8.0 /HPF (0-13.0) 05/12/17 16:00 Urine Bacteria (Auto) 3+ /HPF (Negative) 05/12/17 16:00 Urine WBC Clumps 3+ /HPF 05/12/17 16:00 <KENY BRUCE R - Last Filed: 05/14/17 15:09> Assessment and Plan Assessment and plan: I saw and evaluated the patient. I agree with the findings and the plan of care as documented in the Nurse Practitioner's. Hospitalist Physical - Constitutional Vitals: Temp Pulse Resp BP Pulse Ox 97.9 F 68 20 167/68 99 05/14/17 11:57 05/14/17 11:57 05/14/17 11:57 05/14/17 14:17 05/14/17 11:57 Results - Labs CBC & Chem 7: 05/14/17 05:04 05/14/17 05:04 Labs: Laboratory Last Values WBC 10.1 K/mm3 (4.5-11.0) 05/14/17 05:04 RBC 3.71 M/mm3 (3.65-5.03) 05/14/17 05:04 Hgb 9.7 gm/dl (10.1-14.3) L 05/14/17 05:04 Hct 30.5 % (30.3-42.9) 05/14/17 05:04 MCV 82 fl (79-97) 05/14/17 05:04 MCH 26 pg (28-32) L 05/14/17 05:04 MCHC 32 % (30-34) 05/14/17 05:04 RDW 19.3 % (13.2-15.2) H 05/14/17 05:04 Plt Count 299 K/mm3 (140-440) 05/14/17 05:04 Lymph % (Auto) 10.4 % (13.4-35.0) L 05/14/17 05:04 [place] % (Auto) 13.9 % (0.0-7.3) H 05/14/17 05:04 Eos % (Auto) 2.5 % (0.0-4.3) 05/14/17 05:04 Baso % (Auto) 0.6 % (0.0-1.8) 05/14/17 05:04 Lymph # 1.1 K/mm3 (1.2-5.4) L 05/14/17 05:04 [place] # 1.4 K/mm3 (0.0-0.8) H 05/14/17 05:04 Eos # 0.3 K/mm3 (0.0-0.4) 05/14/17 05:04 Baso # 0.1 K/mm3 (0.0-0.1) 05/14/17 05:04 Seg Neutrophils % 72.6 % (40.0-70.0) H 05/14/17 05:04 Seg Neutrophils # 7.3 K/mm3 (1.8-7.7) 05/14/17 05:04 VBG pH 7.416 (7.320-7.420) 05/12/17 15:33 Sodium 138 mmol/L (137-145) 05/14/17 05:04 Potassium 3.0 mmol/L (3.6-5.0) L D 05/14/17 05:04 Chloride 98.2 mmol/L (98-107) 05/14/17 05:04 Carbon Dioxide 23 mmol/L (22-30) 05/14/17 05:04 Anion Gap 20 mmol/L 05/14/17 05:04 BUN 15 mg/dL (7-17) 05/14/17 05:04 Creatinine 1.4 mg/dL (0.7-1.2) H 05/14/17 05:04 Estimated GFR 40 ml/min 05/14/17 05:04 BUN/Creatinine Ratio 11 % 05/14/17 05:04 Glucose 85 mg/dL (65-100) 05/14/17 05:04 POC Glucose 103 (70-105) 05/13/17 11:42 Lactic Acid 3.80 mmol/L (0.7-2.0) H* 05/13/17 14:06 Calcium 8.6 mg/dL (8.4-10.2) 05/14/17 05:04 Total Bilirubin 0.40 mg/dL (0.1-1.2) 05/13/17 13:38 AST 20 units/L (5-40) 05/13/17 13:38 ALT 10 units/L (7-56) 05/13/17 13:38 Alkaline Phosphatase 64 units/L (35-129) 05/13/17 13:38 Total Creatine Kinase 47 units/L (30-135) 05/12/17 14:56 CK-MB (CK-2) 1.4 ng/mL (0.0-4.0) 05/12/17 14:56 CK-MB (CK-2) Rel Index 2.9 (0-4) 05/12/17 14:56 Troponin T 0.019 ng/mL (0.00-0.029) 05/12/17 14:56 Total Protein 6.6 g/dL (6.3-8.2) 05/13/17 13:38 Albumin 4.1 g/dL (3.9-5) 05/13/17 13:38 Albumin/Globulin Ratio 1.6 % 05/13/17 13:38 Lipase 99 units/L (13-60) H 05/12/17 14:56 Urine Color Yellow (Yellow) 05/12/17 16:00 Urine Turbidity Cloudy (Clear) 05/12/17 16:00 Urine pH 5.0 (5.0-7.0) 05/12/17 16:00 Ur Specific [place] 1.013 (1.003-1.030) 05/12/17 16:00 Urine Protein 100 mg/dl mg/dL (Negative) 05/12/17 16:00 Urine Glucose (UA) Neg mg/dL (Negative) 05/12/17 16:00 Urine Ketones Neg mg/dL (Negative) 05/12/17 16:00 Urine Blood Neg (Negative) 05/12/17 16:00 Urine Nitrite Neg (Negative) 05/12/17 16:00 Urine Bilirubin Neg (Negative) 05/12/17 16:00 Urine Urobilinogen < 2.0 mg/dL (<2.0) 05/12/17 16:00 Ur Leukocyte Esterase Mod (Negative) 05/12/17 16:00 Urine WBC (Auto) > 182.0 /HPF (0.0-6.0) H 05/12/17 16:00 Urine RBC (Auto) 9.0 /HPF (0.0-6.0) 05/12/17 16:00 U Epithel Cells (Auto) 8.0 /HPF (0-13.0) 05/12/17 16:00 Urine Bacteria (Auto) 3+ /HPF (Negative) 05/12/17 16:00 Urine WBC Clumps 3+ /HPF 05/12/17 16:00
[2017-05-14] MEDS: FLONASE NS SCH ×2 (09:43→21:13)
[2017-05-14] MEDS: DELTASONE PO SCH (09:44)
[2017-05-14] MEDS: SODIUM BICARBONATE PO SCH ×2 (09:44→21:14)
[2017-05-14] MEDS: PROCARDIA XL PO SCH (09:44)
[2017-05-14] MEDS: ZOLOFT PO SCH (09:44)
[2017-05-14] MEDS: ALDACTONE PO SCH (09:45)
[2017-05-14] MEDS: APRESOLINE PO SCH ×3 (09:45→21:14)
[2017-05-14] MEDS: LASIX PO SCH (09:46)
[2017-05-14] MEDS: PROGRAF PO SCH ×2 (09:46→21:13)
[2017-05-14] MEDS: TOPROL XL PO SCH (09:46)
[2017-05-14] MEDS: CELLCEPT PO SCH ×2 (09:46→22:15)
[2017-05-14] MEDS: NACL 0.45% 1000 ML 1,000 ML IV SCH (09:48)
[2017-05-14] MEDS: LEVAQUIN 750MG/150ML 750 MG/150 ML BAG IV SCH (10:02)
[2017-05-14] MEDS: ZOFRAN IV PRN ×3 (10:49→21:15)
[2017-05-14] MEDS ORDERED: K-DUR PO NR ×2 (11:30→15:00)
[2017-05-14] MEDS: MORPHINE IV PRN ×2 (14:26→21:13)
--- NOTE | 2017-05-14 20:19 | Consultation ---
History of Present Illness - Reason for Consult Consult date: 05/14/17 UTI Requesting physician: MARJAN CARROLL - History of Present Illness 51 years old female with history of DM, HTN, CKD S/P renal transplant currently on graft rejection therapy cellcept, prednisone and prograf, admitted on due to abdominal pain, nausea and vomiting multiple times over the past week , with worsening symptoms over the past 2 days. Pt states that her abdominal pain is 9/10, epigastric, radiates to her back, worse with moving, and standings , mildly improved with rest. Pt is unable to tolerate oral intake. Reports urinary frequency but no dysuria, hematuria, fever. In the ED, temp 97.7, HR 87, R 23, BP 125/59, WBC 16.2K, Hg 11.4. Creat 1.6. lactate 3.8. UA positive >182 WBCs and moderate LE. Abx: Levaquin 05/12 Micro: Urine cx 05/12 GNRs Past History Past Medical History: anemia, arthritis, diabetes, hypertension, renal failure Past Surgical History: appendectomy, Other (Renal transplant, R BKA) Social history: , lives with family. denies: smoking, alcohol abuse, prescription drug abuse Family history: diabetes, hypertension Medications and Allergies Allergies Allergy/AdvReac Type Severity Reaction Status Date / Time adhesive tape AdvReac Rash Verified 04/29/17 12:05 hydromorphone HCl AdvReac Anaphylaxis Verified 04/29/17 12:05 [From Dilaudid] piperacillin sodium AdvReac Diarrhea Verified 04/29/17 12:05 [From Zosyn] tazobactam sodium AdvReac Diarrhea Verified 04/29/17 12:05 [From Zosyn] Home Medications Medication Instructions Recorded Confirmed Last Taken Type AtorvaSTATin [Lipitor] 10 mg PO QDAY 11/12/16 05/13/17 11/29/16 History Metoprolol Xl [Metoprolol 100 mg PO QDAY 11/12/16 05/13/17 11/29/16 History SUCCINATE ER TAB] Prednisone [predniSONE (Yamilex) ER 5 mg PO QAM 11/12/16 05/13/17 11/29/16 History TAB] Tacrolimus [Prograf] 2 mg PO BID 11/12/16 05/13/17 11/29/16 History Furosemide [Lasix TAB] 40 mg PO QDAY 04/29/17 05/13/17 Unknown History Hydralazine HCl 50 mg PO TID 04/29/17 05/13/17 Unknown History NIFEdipine XL [Procardia Xl] 60 mg PO QDAY 04/29/17 05/13/17 Unknown History Sertraline [Zoloft] 25 mg PO QDAY 04/29/17 05/13/17 Unknown History Sodium Bicarbonate 1,300 mg PO BID 04/29/17 05/13/17 Unknown History Tacrolimus [Prograf] 1 mg PO BID 04/29/17 05/13/17 Unknown History Mycophenolate [Cellcept] 500 mg PO BID tablet 05/02/17 05/13/17 Unknown Rx Spironolactone [Aldactone] 25 mg PO QDAY #30 tablet 05/02/17 05/13/17 Unknown Rx Active Meds: Active Medications Acetaminophen (Tylenol) 650 mg PO Q4H PRN PRN Reason: Pain MILD(1-3)/Fever >100.5/MIGUEL Albuterol (Proventil) 2.5 mg IH Q4HRT PRN PRN Reason: Shortness Of Breath Atorvastatin Calcium (Lipitor) 10 mg PO QDAY [facility] Last Admin: 05/14/17 09:45 Dose: 10 mg Fluticasone Propionate (Flonase) 100 mcg NS BID [facility] Last Admin: 05/14/17 09:43 Dose: 100 mcg Furosemide (Lasix) 40 mg PO QDAY [facility] Last Admin: 05/14/17 09:46 Dose: 40 mg Hydralazine HCl (Apresoline) 50 mg PO TID [facility] Last Admin: 05/14/17 14:17 Dose: 50 mg Sodium Chloride (Nacl 0.45% 1000 Ml) 1,000 mls @ 100 mls/hr IV DIRECT [facility] Last Admin: 05/14/17 09:48 Dose: 100 mls/hr Levofloxacin (Levaquin) 750 mg PO DAILY [facility] Metoprolol Succinate (Toprol Xl) 100 mg PO QDAY [facility] Last Admin: 05/14/17 09:46 Dose: 100 mg Morphine Sulfate (Morphine) 2 mg IV Q4H PRN PRN Reason: Pain, Moderate (4-6) Last Admin: 05/14/17 14:26 Dose: 2 mg Mycophenolate Mofetil (Cellcept) 500 mg PO BID [facility] Last Admin: 12/27/17 09:46 Dose: 500 mg Nifedipine (Procardia Xl) 60 mg PO QDAY [facility] Last Admin: 05/14/17 09:44 Dose: 60 mg Ondansetron HCl (Zofran) 4 mg IV Q4H PRN PRN Reason: Nausea And Vomiting Last Admin: 05/14/17 18:16 Dose: 4 mg Oxycodone/Acetaminophen (Percocet 5/325) 1 tab PO Q6H PRN PRN Reason: Pain, Moderate (4-6) Last Admin: 05/14/17 01:12 Dose: 1 tab Prednisone (Deltasone) 5 mg PO QDAY [facility] Last Admin: 05/14/17 09:44 Dose: 5 mg Sertraline HCl (Zoloft) 25 mg PO QDAY [facility] Last Admin: 05/14/17 09:44 Dose: 25 mg Sodium Bicarbonate (Sodium Bicarbonate) 1,300 mg PO BID [facility] Last Admin: 05/14/17 09:44 Dose: 1,300 mg Spironolactone (Aldactone) 25 mg PO QDAY [facility] Last Admin: 05/14/17 09:45 Dose: 25 mg Tacrolimus (Prograf) 3 mg PO BID [facility] Last Admin: 05/14/17 09:46 Dose: 3 mg Review of Systems All systems: negative (as per HPI rest neg) Physical Examination - Physical Exam Narrative exam: Alert in NAD CECI clear OP Lungs CTA irineo CV RRR Abd +TTP diffusely Ext mild irineo leg edema Skin no rash - Constitutional Vitals: Vital Signs Temp Pulse Resp BP Pulse Ox 98.2 F 81 20 164/67 98 05/14/17 16:38 05/14/17 16:38 05/14/17 16:38 05/14/17 16:38 05/14/17 16:38 Temperature -Last 24 Hours Temperature 98.2 F Temperature 97.9 F Temperature 98.0 F Temperature 98.1 F Temperature 98.6 F Results - Labs CBC & Chem 7: 05/14/17 05:04 05/14/17 05:04 Labs: Abnormal lab results 05/14/17 05/14/17 Range/Units 05:04 05:04 Hgb 9.7 L (10.1-14.3) gm/dl MCH 26 L (28-32) pg RDW 19.3 H (13.2-15.2) % Lymph % (Auto) 10.4 L (13.4-35.0) % Maverick % (Auto) 13.9 H (0.0-7.3) % Lymph # 1.1 L (1.2-5.4) K/mm3 Maverick # 1.4 H (0.0-0.8) K/mm3 Seg Neutrophils % 72.6 H (40.0-70.0) % Potassium 3.0 L D (3.6-5.0) mmol/L Creatinine 1.4 H (0.7-1.2) mg/dL Assessment and Plan 1)Sepsis: present on admission with leukocytosis and increased lactate. Etiology - UTI 2)Complicated UTI in an immunocompromised host: urine cx +GNRs 3) S/P renal transplant on cellcept, prograft and prednisone Plan: -continue levaquin IV for now -monitor urine culture -monitor creat Thanks NUBIA Carroll for consultation Vivienne Edmond
[2017-05-15] MEDS: ZOFRAN IV PRN ×3 (01:42→22:03)
[2017-05-15] MEDS: MORPHINE IV PRN (01:42)
[2017-05-15 06:45] LABS: Calcium 8.6 mg/dL (8.4-10.2)
[2017-05-15] MEDS: FLONASE NS SCH ×2 (09:42→22:03)
[2017-05-15] MEDS: APRESOLINE PO SCH ×3 (09:43→22:02)
[2017-05-15] MEDS: PROGRAF PO SCH ×2 (09:43→22:02)
[2017-05-15] MEDS: TOPROL XL PO SCH (09:44)
[2017-05-15] MEDS: SODIUM BICARBONATE PO SCH ×2 (09:44→22:02)
[2017-05-15] MEDS: PROCARDIA XL PO SCH (09:44)
[2017-05-15] MEDS: LASIX PO SCH (09:44)
[2017-05-15] MEDS: CELLCEPT PO SCH ×2 (09:44→22:01)
[2017-05-15] MEDS: ALDACTONE PO SCH (09:45)
[2017-05-15] MEDS: DELTASONE PO SCH (09:45)
[2017-05-15] MEDS ORDERED: LEVAQUIN PO SCH (10:00)
--- NOTE | 2017-05-15 11:02 | Progress Note ---
Assessment and Plan Assessment: 1)Sepsis: better. Etiology - UTI 2)Complicated UTI in an immunocompromised host: urine cx MDR E coli 3) S/P renal transplant on cellcept, prograft and prednisone 4) Zosyn intolerance - causing severe diarrhea Plan: -stop levaquin -start ceftriaxone -upon discharge will do ceftin 500 mg PO q12h total 10 days -monitor creatinine -contact isolation due to MDR E coli I will be off until May 21, but available over the phone, please call me for questions. Thank you Dr Prabhakar for your consultation, will follow up with you. Vivienne Simmons MD Infectious Diseases Specialist [facility] ([facility]) M [phone] O [phone] Subjective Date of service: 05/15/17 Principal diagnosis: UTI Interval history: Feels better. No N/V/D. No fever. She was c/o lower back pain overnight. Abx: Levaquin 05/12 Micro: Urine cx 05/12 GNRs Objective - Exam Narrative Exam: General appearance: Alert in NAD, conversant Eyes: anicteric sclerae, moist conjunctivae; no lid-lag; PERRLA HENT: Atraumatic; oropharynx clear Neck: Trachea midline; supple, no thyromegaly or lymphadenopathy Lungs: CTA CV: RRR Abdomen: Soft, non-tender Extremities: right BKA Skin: Normal temperature, turgor and texture; no rash, ulcers or subcutaneous nodules Psych: Appropriate affect, alert and oriented to person, place and time. Neuro: alert and oriented x 3. Moving all extermities Lines: No CVL / PICC - Constitutional Vitals: Vital Signs Temp Pulse Resp BP Pulse Ox 98.4 F 80 20 160/70 98 05/15/17 07:50 05/15/17 07:50 05/15/17 07:50 05/15/17 09:45 05/15/17 07:50 Temperature -Last 24 Hours Temperature 98.4 F Temperature 98.1 F Temperature 98.3 F Temperature 98.3 F Temperature 98.2 F Temperature 97.9 F - Labs CBC & Chem 7: 05/14/17 05:04 05/15/17 05:22 Labs: Abnormal lab results 05/15/17 Range/Units 05:22 Sodium 132 L (137-145) mmol/L Potassium 3.3 L (3.6-5.0) mmol/L Chloride 93.4 L (98-107) mmol/L Carbon Dioxide 17 L (22-30) mmol/L Creatinine 1.5 H (0.7-1.2) mg/dL
[2017-05-15] MEDS ORDERED: ROCEPHIN/NS 1 GM/50 ML 1 GM/50 ML BAG IV SCH (12:00)
[2017-05-15] MEDS: ZOLOFT PO SCH (14:15)
[2017-05-15] MEDS ORDERED: ATIVAN IV PRN (15:02)
[2017-05-15] MEDS ORDERED: K-DUR PO ONE (15:04)
--- NOTE | 2017-05-15 15:10 | Progress Note ---
Assessment and Plan Assessment and plan: Patient is a 51 years old woman per infectious disease Dr. Edmond: with OA, DM, HTN, CKD S/P renal transplant currently on graft rejection therapy presents to ED abdominal pain, nausea and multiple episodes of vomiting over the past week, with worsening symptoms over the past 2 days. Sepsis due urinary tract infection see ID note below Acute renal failure/vasomotor nephropathy Serum creatinine continues to trend down, yesterday was 1.6 today 1.4 Continue IV fluid Nephrology following Transplant service , [facility] notified and recommend admission with IV abx treatment for UTI. Hypokalemia Replaced again, due to n/v Closely monitor electrolytes Diabetes mellitus Accu-Chek before meals and at bedtime Sliding scale insulin/NovoLog ADA carbohydrate consistent diet Hypertensive urgency Continue home antihypertensive medications Closely monitor blood pressure DVT prophylaxis Heparin 05/15/17: She has n/v w/o abd pains, iv zofran helps. If she tolerated iv rocephin then d/c tomorrow on abx per ID recommendations. per Dr. Edmond, ID: 1)Sepsis: better. Etiology - UTI 2)Complicated UTI in an immunocompromised host: urine cx MDR E coli 3) S/P renal transplant on cellcept, prograft and prednisone is 4) Zosyn intolerance - causing severe diarrhea Plan: -stop levaquin -start ceftriaxone -upon discharge will do ceftin 500 mg PO q12h total 10 days -monitor creatinine -contact isolation due to MDR E coli I will be off until May 21, but available over the phone, please call me for questions. History Interval history: Patient was seen and examined. Follow-up on current diagnosis. Overnight uneventful. Patient denies any chest pain, shortness breath, or severe headaches. Imaging, nursing note, chart, labs and old chart reviewed. Discussed with patient. Patient complains of nausea vomiting after taking prednisone she is typical, no abdominal pain at all. Diarrhea is present. Hospitalist Physical - Physical exam Narrative exam: GEN: WDWN, NAD, AWAKE, ALERT, ORIENTATED 3 HEENT: NCAT, EOMI, PERRL, OP Clear NECK: supple, no adenopathy, no thyromegaly, no JVD CVS/HEART: RRR, NORMAL S1S2, NO JVD, pulses present bilaterally CHEST/LUNGS: CTA B, Symmetrical chest expansion, good air entry bilaterally GI/Abdomen: soft, NTND, good bowel sounds, no guarding or rebound /Bladder: no suprapubic tenderness, no CVA or paraspinal tenderness EXT/Skin: no c/c/e, no obvious rash MSK: FROM x 4, has leg amputation Neuro: CN 2-12 grossly intact except blindness, no new focal deficits Psych: calm - Constitutional Vitals: Temp Pulse Resp BP Pulse Ox 98.4 F 92 H 20 124/59 99 05/15/17 13:08 05/15/17 13:08 05/15/17 13:08 05/15/17 14:15 05/15/17 13:08 General appearance: Present: other (Patient is legally blind.) Results - Labs CBC & Chem 7: 05/14/17 05:04 05/15/17 05:22 Labs: Laboratory Last Values WBC 10.1 K/mm3 (4.5-11.0) 05/14/17 05:04 RBC 3.71 M/mm3 (3.65-5.03) 05/14/17 05:04 Hgb 9.7 gm/dl (10.1-14.3) L 05/14/17 05:04 Hct 30.5 % (30.3-42.9) 05/14/17 05:04 MCV 82 fl (79-97) 05/14/17 05:04 MCH 26 pg (28-32) L 05/14/17 05:04 MCHC 32 % (30-34) 05/14/17 05:04 RDW 19.3 % (13.2-15.2) H 05/14/17 05:04 Plt Count 299 K/mm3 (140-440) 05/14/17 05:04 Lymph % (Auto) 10.4 % (13.4-35.0) L 05/14/17 05:04 [place] % (Auto) 13.9 % (0.0-7.3) H 05/14/17 05:04 Eos % (Auto) 2.5 % (0.0-4.3) 05/14/17 05:04 Baso % (Auto) 0.6 % (0.0-1.8) 05/14/17 05:04 Lymph # 1.1 K/mm3 (1.2-5.4) L 05/14/17 05:04 [place] # 1.4 K/mm3 (0.0-0.8) H 05/14/17 05:04 Eos # 0.3 K/mm3 (0.0-0.4) 05/14/17 05:04 Baso # 0.1 K/mm3 (0.0-0.1) 05/14/17 05:04 Seg Neutrophils % 72.6 % (40.0-70.0) H 05/14/17 05:04 Seg Neutrophils # 7.3 K/mm3 (1.8-7.7) 05/14/17 05:04 VBG pH 7.416 (7.320-7.420) 05/12/17 15:33 Sodium 132 mmol/L (137-145) L 05/15/17 05:22 Potassium 3.3 mmol/L (3.6-5.0) L 05/15/17 05:22 Chloride 93.4 mmol/L (98-107) L 05/15/17 05:22 Carbon Dioxide 17 mmol/L (22-30) L 05/15/17 05:22 Anion Gap 25 mmol/L 05/15/17 05:22 BUN 13 mg/dL (7-17) 05/15/17 05:22 Creatinine 1.5 mg/dL (0.7-1.2) H 05/15/17 05:22 Estimated GFR 37 ml/min 05/15/17 05:22 BUN/Creatinine Ratio 9 % 05/15/17 05:22 Glucose 71 mg/dL (65-100) 05/15/17 05:22 POC Glucose 103 (70-105) 05/13/17 11:42 Lactic Acid 3.80 mmol/L (0.7-2.0) H* 05/13/17 14:06 Calcium 8.6 mg/dL (8.4-10.2) 05/15/17 05:22 Total Bilirubin 0.40 mg/dL (0.1-1.2) 05/13/17 13:38 AST 20 units/L (5-40) 05/13/17 13:38 ALT 10 units/L (7-56) 05/13/17 13:38 Alkaline Phosphatase 64 units/L (35-129) 05/13/17 13:38 Total Creatine Kinase 47 units/L (30-135) 05/12/17 14:56 CK-MB (CK-2) 1.4 ng/mL (0.0-4.0) 05/12/17 14:56 CK-MB (CK-2) Rel Index 2.9 (0-4) 05/12/17 14:56 Troponin T 0.019 ng/mL (0.00-0.029) 05/12/17 14:56 Total Protein 6.6 g/dL (6.3-8.2) 05/13/17 13:38 Albumin 4.1 g/dL (3.9-5) 05/13/17 13:38 Albumin/Globulin Ratio 1.6 % 05/13/17 13:38 Lipase 99 units/L (13-60) H 05/12/17 14:56 Urine Color Yellow (Yellow) 05/12/17 16:00 Urine Turbidity Cloudy (Clear) 05/12/17 16:00 Urine pH 5.0 (5.0-7.0) 05/12/17 16:00 Ur Specific [place] 1.013 (1.003-1.030) 05/12/17 16:00 Urine Protein 100 mg/dl mg/dL (Negative) 05/12/17 16:00 Urine Glucose (UA) Neg mg/dL (Negative) 05/12/17 16:00 Urine Ketones Neg mg/dL (Negative) 05/12/17 16:00 Urine Blood Neg (Negative) 05/12/17 16:00 Urine Nitrite Neg (Negative) 05/12/17 16:00 Urine Bilirubin Neg (Negative) 05/12/17 16:00 Urine Urobilinogen < 2.0 mg/dL (<2.0) 05/12/17 16:00 Ur Leukocyte Esterase Mod (Negative) 05/12/17 16:00 Urine WBC (Auto) > 182.0 /HPF (0.0-6.0) H 05/12/17 16:00 Urine RBC (Auto) 9.0 /HPF (0.0-6.0) 05/12/17 16:00 U Epithel Cells (Auto) 8.0 /HPF (0-13.0) 05/12/17 16:00 Urine Bacteria (Auto) 3+ /HPF (Negative) 05/12/17 16:00 Urine WBC Clumps 3+ /HPF 05/12/17 16:00
[2017-05-15] MEDS: cefTRIAXone 1 GM in NACL 0.9% 20 ML IV SCH (15:11)
--- NOTE | 2017-05-15 16:54 | XRay Report ---
ABDOMEN TWO VIEWS: 05/15/17 15:11:00 CLINICAL: Nausea and vomiting for one week. COMPARISON:None. FINDINGS: Supine upright views demonstrate a normal bowel gas pattern. Moderate stool in the ascending colon. No distended bowel and no air-fluid levels. No mass or suspicious calcifications. Surgical clips in the right abdomen in the left pelvis. No pneumoperitoneum. The bones and soft tissues are normal. IMPRESSION: Negative abdomen.
[2017-05-15] MEDS: NACL 0.45% 1000 ML 1,000 ML IV SCH (22:03)
[2017-05-16 06:06] LABS: Hematocrit 28.4 % (30.3-42.9); Hemoglobin 8.9 gm/dl (10.1-14.3); Mean Corpuscular HGB Conc 32 % (30-34); Mean Corpuscular Volume 81 fl (79-97); Platelet Count 261 K/mm3 (140-440)
[2017-05-16 06:07] LABS: Mean Corpuscular Hemoglobin 26 pg (28-32)
[2017-05-16 06:24] LABS: Calcium 8.5 mg/dL (8.4-10.2); Magnesium 1.4 mg/dL (1.7-2.3)
[2017-05-16] MEDS ORDERED: K-DUR PO NR (09:30)
[2017-05-16] MEDS: ALDACTONE PO SCH (10:31)
[2017-05-16] MEDS: DELTASONE PO SCH (10:31)
[2017-05-16] MEDS: NACL 0.45% 1000 ML 1,000 ML IV SCH (10:31)
[2017-05-16] MEDS: PROGRAF PO SCH (10:32)
[2017-05-16] MEDS: SODIUM BICARBONATE PO SCH (10:32)
[2017-05-16] MEDS: PROCARDIA XL PO SCH (10:32)
[2017-05-16] MEDS: LASIX PO SCH (10:34)
[2017-05-16] MEDS: APRESOLINE PO SCH ×2 (10:34→14:22)
[2017-05-16] MEDS: FLONASE NS SCH (10:34)
[2017-05-16] MEDS: TOPROL XL PO SCH (10:34)
[2017-05-16] MEDS: CELLCEPT PO SCH (10:35)
[2017-05-16] MEDS: ZOLOFT PO SCH (10:36)
--- NOTE | 2017-05-16 13:18 | Discharge Summary ---
<MARJAN FRANZ - Last Filed: 05/16/17 14:27> Providers - Providers Date of Admission: 05/12/17 18:22 Date of discharge: 05/16/17 Attending physician: KENY BRUCE 05/14/17 10:54 Consult to Physician [CONS] Urgent Consulting Provider: MATHEW HUERTA Reason For Exam: urine culture positive for gram -ve jose a Place consult to:: yes Notified:: yes Primary care physician: KAY WHITE Hospitalization Reason for admission: Sepsis due urinary tract infection Condition: Good Hospital course: Patient is a 51 years old female with OA, DM, HTN, CKD S/P renal transplant currently on graft rejection therapy presents to ED abdominal pain, nausea and multiple episodes of vomiting over the past week, with worsening symptoms over the past 2 days. Patient was diagnosed with Sepsis due urinary tract infection, Acute renal failure/vasomotor nephropathy,Hypokalemia,Diabetes mellitus and Hypertensive urgency. urine culture positive for gram-negative jose a. She was treated with supplemental potassium, IV fluid and IV antibiotics. She is being discharged on oral antibiotic. Patient clinically improved and stable for discharge. Right arm pain secondary to nerve pain. unremarkable right upper arm Doppler. Patient advised to follow up as outpatient with Jennifer Farmer. Patient was advised to follow up with her primary care. Discharge Diagnosed Sepsis due urinary tract infection Urinary tract infection Acute renal failure/vasomotor nephropathy Hypokalemia Diabetes mellitus Hypertensive urgency Right arm pain Disposition: DC- TO HOME OR SELFCARE Time spent for discharge: 33 minutes Core Measure Documentation - Palliative Care Palliative Care/ Comfort Measures: Not Applicable - Core Measures Any of the following diagnoses?: none Exam - Physical Exam Narrative exam: Legally blind - Constitutional Vitals: Temp Pulse Resp BP Pulse Ox 98.8 F 86 20 147/61 96 05/16/17 07:13 05/16/17 07:13 05/16/17 07:13 05/16/17 10:34 05/16/17 07:13 General appearance: Present: no acute distress - EENT Eyes: Present: PERRL ENT: hearing intact - Neck Neck: Present: supple - Respiratory Respiratory effort: normal Respiratory: bilateral: CTA - Cardiovascular Rhythm: regular Heart Sounds: Present: S1 & S2 - Extremities Extremity abnormal: other (Right BKA) - Abdominal General gastrointestinal: Present: soft, non-tender Female genitourinary: Present: deferred - Rectal Rectal Exam: deferred - Integumentary Integumentary: Present: clear, warm, dry - Musculoskeletal Musculoskeletal: strength equal bilaterally - Psychiatric Psychiatric: appropriate mood/affect - Neurologic Neurologic: CNII-XII intact - Allied Health Allied health notes reviewed: nursing Plan Activity: no restrictions Diet: low fat, low cholesterol, low salt, renal Follow up with: KAY WHITE MD [Primary Care Provider] - 3-5 Days PALMER MURRAY MD [Staff Physician] - 7 Days Prescriptions: Cefuroxime Axetil [Ceftin] 500 mg PO Q12H 10 Days ml <KENY BRUCE R - Last Filed: 05/16/17 15:39> Providers - Providers Date of Admission: 05/12/17 18:22 Attending physician: KENY BRUCE 05/14/17 10:54 Consult to Physician [CONS] Urgent Consulting Provider: MATHEW HUERTA Reason For Exam: urine culture positive for gram -ve jose a Place consult to:: yes Notified:: yes Primary care physician: KAY WHITE Hospitalization Hospital course: I saw and evaluated the patient. I agree with the findings and the plan of care as documented in the Nurse Practitioner's~note, with the following corrections and additions. Core Measure Documentation - Palliative Care Palliative Care/ Comfort Measures: Not Applicable - Core Measures Any of the following diagnoses?: none - VTE Discharge Requirements Deep Vein Thrombosis/Pulmonary Embolism Present on Admission: No Has pt received <5 days of overlap therapy or INR<2.0: No Anticoagulant overlap therapy prescribed at discharge: No Contraindication No Overlap Therapy order at DC: Not Indicated Exam - Constitutional Vitals: Temp Pulse Resp BP Pulse Ox 98.8 F 86 20 170/62 96 05/16/17 07:13 05/16/17 07:13 05/16/17 07:13 05/16/17 14:22 05/16/17 07:13 Plan Activity: other (no strenous activity until cleared by pcp)
[2017-05-16] MEDS: cefTRIAXone 1 GM in NACL 0.9% 20 ML IV SCH (14:22)
[2017-05-16 16:19] VITALS: BP 147/62
--- NOTE | 2017-05-21 13:58 | Vascular Lab Report ---
UPPER EXTREMITY VENOUS DUPLEX: REASON FOR EXAM: Pain of the upper extremities COMMENTS ON THE RIGHT: All arm veins visualized are freely compressible without evidence of internal echogenicity. The subclavian and internal jugular veins are free of thrombus. Flow is spontaneous and phasic throughout. COMMENTS ON THE LEFT: All arm veins visualized are freely compressible without evidence of internal echogenicity. The subclavian and internal jugular veins are free of thrombus. Flow is spontaneous and phasic throughout. IMPRESSION: No evidence of acute or chronic deep venous thrombosis in the upper extremities.
== END 2017-05-16 18:10 | disposition home health service (06) | DRG 871 ==
LOC: ED 13:25 → 3A 18:22
PROVIDERS: ADMIT Internal Medicine; ATTEND Internal Medicine
DX: A41.9 Sepsis, unspecified organism (principal); N17.0 Acute kidney failure with tubular necrosis; N39.0 Urinary tract infection, site not specified; Z94.0 Kidney transplant status; I16.0 Hypertensive urgency; E87.6 Hypokalemia; Z88.8 Allergy status to other drugs, medicaments and biological substances; Z89.511 Acquired absence of right leg below knee; I12.9 Hypertensive chronic kidney disease with stage 1 through stage 4 chronic kidney disease, or unspecified chronic kidney disease; E11.22 Type 2 diabetes mellitus with diabetic chronic kidney disease; N18.9 Chronic kidney disease, unspecified; Z83.3 Family history of diabetes mellitus; Z82.49 Family history of ischemic heart disease and other diseases of the circulatory system; H54.8 Legal blindness, as defined in USA; M79.601 Pain in right arm
CPT/HCPCS: 36415; 74020; 74176; 80048; 80053; 81001; 82140; 82550; 82553; 82805; 82962; 83690; 83735; 84484; 85025; 85027; 87076; 87086; 87186; 93005; 93010; 93970; 94760; 96374; 96375; 99285; A9270-GY; J0696; J1956; J2270; J2405; J2765; J3010; J7030; J7507; J7512; J7517

== ENCOUNTER 2017-06-13 12:40 | Emergency (ER) | payer MEDICARE ==
[2017-06-13 13:03] VITALS: BP 169/77
[2017-06-13] MEDS ORDERED: ZOFRAN ODT PO ONE (13:03)
[2017-06-13 14:27] LABS: Basophils % (Auto) 0.4 % (0.0-1.8); Eosinophils % (Auto) 0.3 % (0.0-4.3); Hematocrit 37.4 % (30.3-42.9); Hemoglobin 11.7 gm/dl (10.1-14.3); Lymphocytes # (Auto) 1.1 K/mm3 (1.2-5.4); Lymphocytes % (Auto) 10.2 % (13.4-35.0); Mean Corpuscular HGB Conc 31 % (30-34); Mean Corpuscular Volume 80 fl (79-97); Monocytes % (Auto) 9.1 % (0.0-7.3); Platelet Count 317 K/mm3 (140-440); Red Blood Count 4.65 M/mm3 (3.65-5.03); Red Cell Distribution Width 18.6 % (13.2-15.2)
[2017-06-13 14:30] LABS: Albumin 4.2 g/dL (3.9-5); Calcium 9.5 mg/dL (8.4-10.2)
[2017-06-13 14:35] LABS: Mean Corpuscular Hemoglobin 25 pg (28-32)
== END 2017-06-13 18:50 | disposition left against medical advice (07) ==
LOC: ED 12:40
DX: R11.10 Vomiting, unspecified (principal); Z53.21 Procedure and treatment not carried out due to patient leaving prior to being seen by health care provider
CPT/HCPCS: 36415; 80053; 85025; Q0162